=== PATIENT | female | born 1945 | race Caucasian/White ===

== ENCOUNTER 2021-08-09 01:48 | Inpatient (IN) | payer MEDICARE, SELFPAY ==
[~2021-08-09] VITALS: Ht 157.5 cm; Wt 89.8 kg
--- NOTE | 2021-08-09 01:55 | NUR ---
PT BROUGHT TO BED 1 VIA PEÑA REDDY
[2021-08-09 01:56] VITALS: BP 148/71
--- NOTE | 2021-08-09 01:56 | NUR ---
patient biba from [facility] c/o left knee and left thigh pain s/p fall. Lac on the left hand. denies loc, gcs 15, aaox4. covid +. patient was just grabbing something and rolled off the bed. pmh: stroke 2017, dm2 meds: plavix nka
--- NOTE | 2021-08-09 02:50 | NUR ---
patient to CT via [facility]
[2021-08-09] MEDS ORDERED: HYDROcodone/APAP 10/325 MG 1 TAB TAB PO ONE (03:25)
[2021-08-09] MEDS ORDERED: ONDANSETRON 4 MG/2 ML VIAL IVP ONE (03:35)
[2021-08-09] MEDS ORDERED: MORPHINE SULFATE 4 MG/ML SYR IVP ONE (03:35)
[2021-08-09 03:54] LABS: BASOPHILS # (AUTO) 0.1 K/uL (0.00-0.22); BASOPHILS % (AUTO) 0.9 % (0.0-2.0); EOSINOPHILS # (AUTO) 0.1 K/uL (0-0.4); EOSINOPHILS % (AUTO) 0.9 % (0.0-4.0); HEMATOCRIT 37.3 % (36-48); HEMOGLOBIN 12.5 g/dL (12.0-16.0); LYMPHOCYTES # (AUTO) 1.6 K/uL (2.5-16.5); LYMPHOCYTES % (AUTO) 14.2 % (20.5-51.1); MEAN CORPUSCULAR HEMOGLOBIN 31 pg (27-31); MEAN CORPUSCULAR HGB CONC 33 g/dL (33-37); MONOCYTES # (AUTO) 0.7 K/uL (0.8-1.0); MONOCYTES % (AUTO) 6.7 % (1.7-9.3); NEUTROPHILS # (AUTO) 8.6 K/uL (1.8-7.7); NEUTROPHILS % (AUTO) 77.3 % (42.2-75.2); PLATELET COUNT (AUTO) 339 K/uL (140-450); RED BLOOD CELL COUNT(AUTO) 3.97 MIL/uL (4.20-5.40); RED CELL DISTRIBUTION WIDTH 14.8 % (11.6-13.7); WHITE BLOOD COUNT (AUTO) 11.1 K/uL (4.8-10.8)
[2021-08-09] MEDS ORDERED: MORPHINE SULFATE 4 MG/ML SYR IM ONE (04:25)
--- NOTE | 2021-08-09 05:52 | NUR ---
ADRIANNE Conte at bedside performing central line on patient.
[2021-08-09] MEDS ORDERED: ACET-10509 PO (07:06)
[2021-08-09] MEDS ORDERED: VITA-16 PO (07:06)
[2021-08-09] MEDS ORDERED: BALS30OI TP (07:06)
[2021-08-09] MEDS ORDERED: PRON INH (07:06)
[2021-08-09] MEDS ORDERED: MULT-2112 PO (07:06)
[2021-08-09] MEDS ORDERED: CARV3.122 PO (07:06)
[2021-08-09] MEDS ORDERED: ATOR20TA PO (07:06)
[2021-08-09] MEDS ORDERED: LISI5TAB18 PO (07:06)
[2021-08-09] MEDS ORDERED: ACET-9525 PO (07:06)
[2021-08-09] MEDS ORDERED: CLOP75TA26 PO (07:06)
--- NOTE | 2021-08-09 07:19 | NUR ---
Pt report given to Jayesh HART. Transfer of care at this time.
--- NOTE | 2021-08-09 08:06 | NUR ---
Patient noted to have existing wounds upon arrival to ER. Photos taken of wound and placed in chart. Wound covered with dressing. Physician informed.
[2021-08-09] MEDS ORDERED: SODIUM PHOS / POTASSIUM PHOS 1 PKT PDR PO PRN (08:15)
[2021-08-09] MEDS ORDERED: MAG SULF 2000 MG/WATER PREMIX 50 ML IV PRN (08:15)
[2021-08-09] MEDS ORDERED: DOCUSATE SODIUM 100 MG GELCAP PO PRN (08:15)
[2021-08-09] MEDS ORDERED: ACETAMINOPHEN 325 MG TAB PO PRN (08:15)
[2021-08-09] MEDS ORDERED: DEXT 5% /NACL 0.9% 1,000 ML IV SCH (08:15)
[2021-08-09] MEDS ORDERED: ONDANSETRON 4 MG/2 ML VIAL IM/IVP PRN (08:15)
--- NOTE | 2021-08-09 08:30 | NUR ---
CENTRAL LINE PLACED BY DR. SADLER
--- NOTE | 2021-08-09 09:02 | NUR ---
PT TAKEN TO CT.
[2021-08-09] MEDS: lisinopriL 5 MG TAB PO SCH (09:30)
[2021-08-09] MEDS: carvediloL 3.125 MG TAB PO SCH ×2 (09:30→22:46)
[2021-08-09] MEDS: VITAMIN D 400 IU TAB PO SCH (09:30)
[2021-08-09] MEDS: PANTOPRAZOLE 40 MG INJ VIAL IVP SCH (09:30)
[2021-08-09] MEDS: MULTIVITAMIN/MINERALS 1 TAB PO SCH (10:30)
[2021-08-09 10:32] LABS: MAGNESIUM 2.1 mg/dL (1.8-2.4)
[2021-08-09 10:33] LABS: ALBUMIN 2.5 g/dL (3.4-5.0); ANION GAP 15.3 (8-16); ASPARTATE AMINOTRANSFERASE 31 U/L (15-37); CARBON DIOXIDE 22.5 mmol/L (21-32); CHLORIDE 108 mmol/L (98-107); CREATININE 0.8 mg/dL (0.6-1.3); GLUCOSE 172 mg/dL (74-106); POTASSIUM 3.8 mmol/L (3.5-5.1); SODIUM SERUM 142 mmol/L (136-145); TOTAL BILIRUBIN 0.6 mg/dL (0.0-1.0); UREA NITROGEN, BLOOD 20 mg/dL (7-18)
--- NOTE | 2021-08-09 10:39 | NUR ---
PT WOUND ON LEFT ARM WAS IRRIGATED WITH NORMAL SALINE. THE WOUND WAS THEN BANDAGED WITH NOPADHERENT DRESSING AND GAUZE ROLL.
[2021-08-09] MEDS: MORPHINE SULFATE 2 MG/ML SYR IVP PRN ×2 (13:02→22:27)
[2021-08-09] MEDS: HYDROcodone/APAP 5/325 MG 1 TAB TAB PO PRN (14:10)
--- NOTE | 2021-08-09 15:49 | NUR ---
PATIENT HAS BEEN SCREENED AND CATEGORIZED LOW NUTRITION RISK. PATIENT WILL BE SEEN WITHIN 7 DAYS OF ADMISSION. 08/15/[address]
--- NOTE | 2021-08-09 19:57 | NUR ---
ENDORSED CARE TO ENVELOPE MACHINE OPERATOR NURSE DELFIN.
--- NOTE | 2021-08-09 20:00 | NUR ---
RESTING COMFORTABLY AT PRESENT RIGHT FEMORAL CENTRAL LINE INTACT
[2021-08-09] MEDS: ATORVASTATIN 20 MG TAB PO SCH (22:47)
--- NOTE | 2021-08-10 00:15 | NUR ---
TURNED AND REPOSITIONED, LINENS CHANGED
[2021-08-10] MEDS ORDERED: DEXTROSE 50% 50 ML SYR IVP PRN (00:25)
[2021-08-10] MEDS: NACL 0.45% 1,000 ML IV SCH ×2 (02:42→16:42)
--- NOTE | 2021-08-10 07:50 | NUR ---
Patient will be admitted to care of CHARO SHERMAN. Admited to [facility]. Will go to room 113. Belongings list completed. Report to charlie guerrero.
--- NOTE | 2021-08-10 07:51 | NUR ---
RECEIVED REPORT FROM ER NURSE NURSE FOR CONTINUITY OF CARE.
[2021-08-10 08:07] VITALS: BP 141/67
--- NOTE | 2021-08-10 08:07 | NUR ---
PT ARRIVED VIA GURNEY WITH ASSIST WITH 2 STAFF FROM ER. ALERT ORIENTED ON PAIN. IV SITE ON RIGHT FEMORAL CENTRAL LINE. ORIENTED TO ROOM, CALL LIGHT TOILET VISITING HOURS , BED. CALL LIGHT WITH IN EASY REACH.
[2021-08-10] MEDS: lisinopriL 5 MG TAB PO SCH (08:31)
[2021-08-10] MEDS: HYDROcodone/APAP 5/325 MG 1 TAB TAB PO PRN ×2 (08:31→14:39)
[2021-08-10] MEDS: carvediloL 3.125 MG TAB PO SCH ×2 (08:32→20:52)
[2021-08-10] MEDS: MULTIVITAMIN/MINERALS 1 TAB PO SCH (08:32)
[2021-08-10] MEDS: VITAMIN D 400 IU TAB PO SCH (08:32)
--- NOTE | 2021-08-10 08:48 | NUR ---
GIVEN ALL DUE ORAL MEDICATION AND PAIN MEDS TOLERATED WELL. ALL SAFETY MEASURE IN PLACE.
[2021-08-10] MEDS: PANTOPRAZOLE 40 MG INJ VIAL IVP SCH (09:00)
--- NOTE | 2021-08-10 09:30 | NUR ---
PT REASSESS FOR HER PAIN EFFECTIVE NO DISTRESS ASLEEP. CALL LIGHT WITH IN EASY REACH.
[2021-08-10 10:17] LABS: BASOPHILS % (AUTO) 0.5 % (0.0-2.0); EOSINOPHILS # (AUTO) 0.1 K/uL (0-0.4); EOSINOPHILS % (AUTO) 1.9 % (0.0-4.0); HEMATOCRIT 31.3 % (36-48); HEMOGLOBIN 10.4 g/dL (12.0-16.0); LYMPHOCYTES # (AUTO) 1.2 K/uL (2.5-16.5); LYMPHOCYTES % (AUTO) 15.5 % (20.5-51.1); MEAN CORPUSCULAR HEMOGLOBIN 32 pg (27-31); MEAN CORPUSCULAR HGB CONC 33 g/dL (33-37); MEAN CORPUSCULAR VOLUME 95.2 fL (80-94); MONOCYTES # (AUTO) 0.8 K/uL (0.8-1.0); MONOCYTES % (AUTO) 10.6 % (1.7-9.3); NEUTROPHILS # (AUTO) 5.5 K/uL (1.8-7.7); NEUTROPHILS % (AUTO) 71.5 % (42.2-75.2); PLATELET COUNT (AUTO) 272 K/uL (140-450); RED BLOOD CELL COUNT(AUTO) 3.29 MIL/uL (4.20-5.40); RED CELL DISTRIBUTION WIDTH 14.9 % (11.6-13.7); WHITE BLOOD COUNT (AUTO) 7.8 K/uL (4.8-10.8)
[2021-08-10 10:25] LABS: ANION GAP 11.7 (8-16); CHLORIDE 111 mmol/L (98-107); CREATININE 0.9 mg/dL (0.6-1.3); GLUCOSE 199 mg/dL (74-106); POTASSIUM 3.7 mmol/L (3.5-5.1); SODIUM SERUM 144 mmol/L (136-145); UREA NITROGEN, BLOOD 19 mg/dL (7-18)
[2021-08-10] MEDS: BLOOD GLUCOSE MONITORING 1 DEV DEV FS SCH ×4 (11:30→20:50)
[2021-08-10] MEDS: INSULIN LISPRO SLIDING SCALE 100 UNITS/ML VIAL SUBQ PRN (12:02)
--- NOTE | 2021-08-10 12:15 | NUR ---
PT WET AND NEED TO BE CHANGE BUT DOESNT WANT TO MOVE AND KEEP ASKING SINCE SHE CAME IN TO PUT CADE CATH. DR. MANCILLA DOING ROUND AND INFORM OF PT REQUEST AND HE AGREED ORDER NOTED AND CARRIED OUT.
--- NOTE | 2021-08-10 12:20 | NUR ---
BLOOD SUGAR CHECK GIVEN INSULIN PER COVERAGE. TOLERATED WELL.
--- NOTE | 2021-08-10 14:40 | NUR ---
PT COMPLAIN OF LEFT HIP PAIN MEDICATED ORDER.
[2021-08-10 16:00] VITALS: BP 153/66
--- NOTE | 2021-08-10 16:55 | NUR ---
BLOOD SUGAR CHECK BLOOD GLUCOSE OF 146 NO COVERAGE NEEDED. PT DOESN'T WANT TO REPOSTION ALWAYS ON HER SIDE. EXPLAIN THE RISK AND BENEFIT.
--- NOTE | 2021-08-10 18:29 | NUR ---
PT ON BED RESTING REFUSED TO BE REPOSITION. COMPLAIN OF HIP PAIN BUT SUBSIDED WITH PAIN MEDICATION. ISOLATION OBSERVE. ALL SAFETY MEASURE IN PLACE.
--- NOTE | 2021-08-10 19:25 | NUR ---
PT ENDORSE TO SPA DIRECTOR/FINANCE NURSE FOR CONTINUITY OF CARE.
--- NOTE | 2021-08-10 19:26 | NUR ---
RECEIVED BEDSIDE REPORT FROM DAY RN. PT IS AAOX3. RESPIRATIONS ARE EQUAL AND UNLABORED ON ROOM AIR SAT WELL 95%. SKIN IS WARM DRY HAS SKIN TEAR ON L FA DRESSING IS C/D/I. PT ON FALL PRECAUTIONS. ON DROPLET PRECAUTIONS FOR COVID +. DX L TROCHANTER FX. PULSES STRONG AND EQUAL. PT ABLE TO MOVE BOTH LEGS AND WIGGLE TOES. CAP REFILL <3 SEC. POC DISCUSSED WITH PT. CALL LIGHT IS WITHIN REACH. WILL CONTINUE TO MONITOR.
[2021-08-10 20:00] VITALS: BP 156/79
[2021-08-10] MEDS: ATORVASTATIN 20 MG TAB PO SCH (20:52)
--- NOTE | 2021-08-10 20:53 | NUR ---
VSS. ADMIN MOSES MEDICATIONS PER ORDERS. MED EDUCATION GIVEN. GAVE WARM BLANKET PER REQUEST. ALL NEEDS MET. WILL CONTINUE TO MONITOR.
--- NOTE | 2021-08-10 22:10 | NUR ---
ROUNDS MADE. PT OBSERVED LAYING ON SIDE. APPEARS TO BE ASLEEP. CHEST RISE AND FALL NOTED. CALL LIGHT IS WITHIN REACH. WILL CONTINUE TO MONITOR.
[2021-08-11] MEDS: MORPHINE SULFATE 2 MG/ML SYR IVP PRN ×2 (00:06→05:22)
--- NOTE | 2021-08-11 00:06 | NUR ---
L HIP PAIN 02/04 ADMIN PRN MORPHINE. PT TOLERATED WELL. EDUCATED PATIENT ON NEED TO REPOSITION TO PREVENT PRESSURE ULCERS PT REFUSING AT THIS TIME. WILL ATTEMPT AGAIN LATER.
--- NOTE | 2021-08-11 02:21 | NUR ---
ROUNDS MADE. PT OBSERVED LAYING IN BED APPEARS TO BE ASLEEP. CHESTS RISE AND FALL NOTED. WILL CONTINUE TO MONITOR.
[2021-08-11 04:00] VITALS: BP 151/72
--- NOTE | 2021-08-11 04:00 | NUR ---
VITAL SIGNS ARE WITHIN NORMAL LIMITS. ALL SAFETY MEASURES ARE IN PLACE. WILL CONTINUE TO MONITOR.
[2021-08-11] MEDS: BLOOD GLUCOSE MONITORING 1 DEV DEV FS SCH ×4 (06:31→21:41)
[2021-08-11] MEDS: INSULIN LISPRO SLIDING SCALE 100 UNITS/ML VIAL SUBQ PRN ×3 (06:31→21:36)
--- NOTE | 2021-08-11 06:31 | NUR ---
BS 164 ADMIN HUMALOG PER SLIDING SCALE. SNACK AT BEDSIDE. ALL NEEDS MET. CALL LIGHT IS WITHIN REACH. WILL CONTINUE TO MONITOR.
--- NOTE | 2021-08-11 07:09 | NUR ---
GAVE BEDSIDE REPORT TO DAY RN. PT ENDORSED IN STABLE CONDITION.
--- NOTE | 2021-08-11 07:10 | NUR ---
RECEIVED ENDORSEMENT FROM MULTIFOCAL LENS INSPECTOR FOR CONTINUITY OF CARE. PT ASLEEP NO DISTRESS NOTED.
[2021-08-11 07:27] LABS: BASOPHILS # (AUTO) 0.1 K/uL (0.00-0.22); EOSINOPHILS # (AUTO) 0.2 K/uL (0-0.4); EOSINOPHILS % (AUTO) 1.8 % (0.0-4.0); HEMATOCRIT 30.7 % (36-48); HEMOGLOBIN 10.2 g/dL (12.0-16.0); LYMPHOCYTES # (AUTO) 1.9 K/uL (2.5-16.5); LYMPHOCYTES % (AUTO) 22.7 % (20.5-51.1); MEAN CORPUSCULAR HEMOGLOBIN 31 pg (27-31); MEAN CORPUSCULAR HGB CONC 33 g/dL (33-37); MEAN CORPUSCULAR VOLUME 94.2 fL (80-94); MONOCYTES # (AUTO) 0.8 K/uL (0.8-1.0); NEUTROPHILS # (AUTO) 5.6 K/uL (1.8-7.7); NEUTROPHILS % (AUTO) 65.5 % (42.2-75.2); PLATELET COUNT (AUTO) 286 K/uL (140-450); RED BLOOD CELL COUNT(AUTO) 3.26 MIL/uL (4.20-5.40); RED CELL DISTRIBUTION WIDTH 14.6 % (11.6-13.7); WHITE BLOOD COUNT (AUTO) 8.5 K/uL (4.8-10.8)
[2021-08-11 07:56] LABS: ANION GAP 12.4 (8-16); CARBON DIOXIDE 25.1 mmol/L (21-32); CHLORIDE 108 mmol/L (98-107); CREATININE 0.8 mg/dL (0.6-1.3); GLUCOSE 167 mg/dL (74-106); POTASSIUM 3.5 mmol/L (3.5-5.1); SODIUM SERUM 142 mmol/L (136-145); UREA NITROGEN, BLOOD 12 mg/dL (7-18)
[2021-08-11 08:00] VITALS: BP 135/72
[2021-08-11] MEDS ORDERED: lisinopriL 5 MG TAB PO SCH (09:00)
[2021-08-11] MEDS: VITAMIN D 400 IU TAB PO SCH (09:11)
[2021-08-11] MEDS: carvediloL 3.125 MG TAB PO SCH ×2 (09:11→21:15)
[2021-08-11] MEDS: MULTIVITAMIN/MINERALS 1 TAB PO SCH (09:11)
--- NOTE | 2021-08-11 09:26 | NUR ---
GIVEN ALL MEDICATION AND ASSISTED FOR HER BREAKFAST. PT ON HER RIGHT SIDE ENCOURAGED TO CHANGE POSITION AND EXPLAIN THE RISK AND BENEFIT BUT SKIN DOESN'T WANT TO CHANGE POSITION.
--- NOTE | 2021-08-11 09:27 | NUR ---
RN GAVE IV PANTOPRAZOLE MEDICATION.
[2021-08-11] MEDS: NACL 0.45% 1,000 ML IV SCH (09:40)
--- NOTE | 2021-08-11 09:54 | NUR ---
IV HYDRATION STILL RUNNING.
[2021-08-11] MEDS: PANTOPRAZOLE 40 MG INJ VIAL IVP SCH (09:55)
[2021-08-11] MEDS: HYDROcodone/APAP 5/325 MG 1 TAB TAB PO PRN ×2 (09:59→18:53)
--- NOTE | 2021-08-11 10:09 | NUR ---
PT COMPLAINING OF NON PRODUCTIVE COUGH INFORM DR. LANGE COVERING FOR DR. DR. MANCILLA. WAITING FOR RESPONSE.
--- NOTE | 2021-08-11 10:19 | NUR ---
DR. EDMOND ORDERED GUFENESIN NOTED AND CARRIED OUT.
[2021-08-11] MEDS: guaiFENesin/CODEINE 100/10MG 5 ML UDC PO PRN ×2 (10:30→17:38)
--- NOTE | 2021-08-11 11:30 | NUR ---
DR. SAUER INSPECTOR CLIP ON SUNGLASSES AT BED SIDE.
--- NOTE | 2021-08-11 11:42 | NUR ---
LEFT MESSAGE TO DOCTOR COHEN FOR CONSULT.
--- NOTE | 2021-08-11 13:10 | NUR ---
PT ON BED RESTING CONTINUE TO BE NPO ON STABLE CONDITION. DROPLET ISOLATION OBSERVE.
--- NOTE | 2021-08-11 15:09 | NUR ---
INFORM PT SHE GOING TO BE TRANSFER TO [facility] FOR HER SURGERY. PT WITH UNDERSTANDING.
--- NOTE | 2021-08-11 16:01 | NUR ---
DC PLANNING: THE PATIENT ADMITTED FROM [facility] S/P FALL WITH C/O PAIN TO THE LEFT HIP. LEFT FEMUR XRAY CONFIRMS INTERTROCHANTERIC FRACTURE OF THE LEFT FEMUR. ORTHO CONSULT ORDERED WITH DR SMITH, HE HAS ASKED THAT THE PATIENT TRANSFER TO [facility]. TRANSFER AND AUTHORIZATION ARRANGEMENTS TO BE DONE BY THE NUCLEAR WORKER TECHNICIAN CHAGO ESCALANTE WILL FOLLOW FOR NEEDS.
--- NOTE | 2021-08-11 16:09 | NUR ---
Dr Diaz Clark called and stated that surgery can be done in [facility]. Contacted Dawood at [place] to see if able to do surgery at [place], L[facility] is able to accommodate Patient and surgery will be done at [facility]. Called [place] insurance no need for auth. and spoke to Teresa Blount to send [place]. Called [facility] transport and arranged transportation for pick up worker at 1630. [facility] able [facility]. will continue to monitor
--- NOTE | 2021-08-11 16:44 | NUR ---
Dr Perales called and looked at the x ray image and stated hip it is not dislocated and can wait on surgery until next week. Called transportation and cancelled it. called [facility] and cancelled bed.
--- NOTE | 2021-08-11 17:22 | NUR ---
DR. COHEN SEEN AND EXAMINED ORDER TO DISCONTINUE NPO.
--- NOTE | 2021-08-11 18:08 | NUR ---
Patient will be going to [facility] tomorrow at 6 am for surgery. Spoke to CLIFF Garcias at CT, Patient will go to room 124B. Dr. Redding aware that surgery tomorrow at CT.
--- NOTE | 2021-08-11 18:12 | NUR ---
PER BORIS FREIGHT DISPATCHER - PT IS NPO POST [place] - PUT AN ORDER - INFORM TANNER BRENNAN.
--- NOTE | 2021-08-11 19:30 | NUR ---
PT ON STABLE CONDITION ENDORSE TO SYSTEMS TECHNICIAN NURSE FOR CONTINUITY OF CARE.
--- NOTE | 2021-08-11 19:35 | NUR ---
RECEIVED BEDSIDE REPORT FROM DAY RN FOR CONTINUITY OF CARE. PT IS AAOX3. RESPIRATIONS ARE EQUAL AND UNLABORED ON RA SAT WELL 95%. SKIN TEAR ON L FA DRESSING DRY AND INTACT.ON DROPLET PRECAUTIONS FOR COVID +. DX L TROCHANTER FX. PULSES STRONG AND EQUAL. PT ABLE TO MOVE BOTH LEGS AND WIGGLE TOES. ALL PRECAUTIONS IN PLACE. CALL LIGHT IS WITHIN REACH. WILL CONTINUE TO MONITOR.
[2021-08-11 20:00] VITALS: BP 131/63
[2021-08-11] MEDS: ATORVASTATIN 20 MG TAB PO SCH (21:16)
--- NOTE | 2021-08-11 21:30 | NUR ---
DUE MEDICATIONS GIVEN. PT TOLERATED WELL. NO DISTRESS NOTED. WILL CONTINUE TO MONITOR.
--- NOTE | 2021-08-11 21:50 | NUR ---
BLOOD GLUCOSE WAS 220. INSULIN COVERAGE GIVEN. PT TOLERATED WELL. WILL CONTINUE TO MONITOR.
--- NOTE | 2021-08-12 | NUR ---
PT ASLEEP. VISIBLE CHEST RISE AND FALL NOTED. ALL PRECAUTIONS IN PLACE. WILL CONTINUE TO MONITOR.
[2021-08-12] MEDS: NACL 0.45% 1,000 ML IV SCH (02:20)
--- NOTE | 2021-08-12 02:35 | NUR ---
PT ASLEEP. VISIBLE CHEST RISE AND FALL NOTED.NO S/SX OF DISTRESS.CALL LIGHT WITHIN REACH. ALL PRECAUTIONS IN PLACE. WILL CONTINUE TO MONITOR.
[2021-08-12 04:00] VITALS: BP 125/66
--- NOTE | 2021-08-12 06:00 | NUR ---
PT WAS PICKED UP BY [facility] TRANSPORT PERSONNEL CARLOS GOING TO [place] FOR SURGERY OF LEFT TROCHANTER FX. VSS.PT IN STABLE CONDITION.
== END 2021-08-12 06:00 | disposition short-term general hospital (02) | DRG 535 ==
LOC: MED 01:48 → MMU 08:18 → MTU 08-10 05:59
PROVIDERS: ADMIT Hospitalist; ATTEND Hospitalist
DX: S72.142A Displaced intertrochanteric fracture of left femur, initial encounter for closed fracture (principal); U07.1 COVID-19; E43 Unspecified severe protein-calorie malnutrition; E78.5 Hyperlipidemia, unspecified; I10 Essential (primary) hypertension; K42.9 Umbilical hernia without obstruction or gangrene; E66.9 Obesity, unspecified; K57.90 Diverticulosis of intestine, part unspecified, without perforation or abscess without bleeding; J32.3 Chronic sphenoidal sinusitis; J01.30 Acute sphenoidal sinusitis, unspecified; E11.65 Type 2 diabetes mellitus with hyperglycemia; Z86.73 Personal history of transient ischemic attack (TIA), and cerebral infarction without residual deficits; Z79.1 Long term (current) use of non-steroidal anti-inflammatories (NSAID); Z79.891 Long term (current) use of opiate analgesic; Z68.36 Body mass index [BMI] 36.0-36.9, adult
CPT/HCPCS: 36415; 70450; 71045; 72192; 80048; 80053; 82948; 83036; 83735; 84100; 85025; 87081; 93005; 96372; 96374; 99285; C9113; J1644; J2270; J2405; Q0092

== ENCOUNTER 2021-08-23 14:36 | Inpatient (IN) | payer MEDICARE, SELFPAY ==
[~2021-08-23] VITALS: Ht 157.5 cm; Wt 83.5 kg
[~2021-08-23 14:36] MED LIST: ACET-10509 PO; ACET-9525 PO; ATOR20TA PO; BALS30OI TP; CARV3.122 PO; CLOP75TA26 PO; LISI5TAB18 PO; MULT-2112 PO; PRON INH; VITA-16 PO
[2021-08-23 14:40] VITALS: BP 127/72
--- NOTE | 2021-08-23 14:40 | NUR ---
BIBA to bed 08
--- NOTE | 2021-08-23 14:50 | NUR ---
EVERTD made aware of EKG results.
--- NOTE | 2021-08-23 15:30 | NUR ---
MARIA DEL CARMEN SWAB AND URINE COLLECTED AND WALKED TO LAB.
--- NOTE | 2021-08-23 15:45 | NUR ---
RT CALLED PER DR PRATT, TO PUT PT ON NON DEBREATHER INSTEAD OF BY-POP.
--- NOTE | 2021-08-23 15:53 | NUR ---
DR PRATT AT BEDSIDE FOR ULTRASOUND IV PLACEMENT.
--- NOTE | 2021-08-23 15:53 | NUR ---
75 Y/O F BIBA FOR ALOC,SHIVERING AND DESATURATION. PER HARJINDER HART SHE WAS STATING 89 ON [address] NC AT HER PLACE, PER EMS PT DESATURATED 50% AND PLACED ON CPAP 90% ON SCENE.RAPID RR AND RAPID HR AT 150'S. PT BASELINE A&O 3. PMH: HTN, DM, FEMUR FX, HLD NKA
--- NOTE | 2021-08-23 15:54 | NUR ---
RT AT BEDSIDE.
[2021-08-23] MEDS ORDERED: INTUBATION KIT MC ONE (15:55)
[2021-08-23] MEDS ORDERED: fentaNYL citrate 1 MG in NACL 0.9% 80 ML IV PRN (16:25)
[2021-08-23] MEDS ORDERED: MIDAZOLAM MDV 50 MG in NACL 0.9% 40 ML IV PRN (16:25)
[2021-08-23] MEDS ORDERED: MIDAZOLAM MDV 100 MG in NACL 0.9% 80 ML IV PRN (16:29)
[2021-08-23] MEDS ORDERED: PIPERACILLIN/TAZOBACTAM 3.375 GM in DEXTROSE 5% 50 ML IV ONE (16:30)
[2021-08-23] MEDS ORDERED: VANCOMYCIN 1,000 MG in DEXTROSE 5% 250 ML IV ONE (16:30)
[2021-08-23] MEDS ORDERED: fentaNYL citrate 2.5 MG in NACL 0.9% 200 ML IV PRN (16:35)
--- NOTE | 2021-08-23 16:50 | NUR ---
FENTANYL AND VERSED STARTED AT THIS TIME. SEE IV SPREADHSHEET
[2021-08-23 16:51] LABS: BASOPHILS % (AUTO) 0.2 % (0.0-2.0); EOSINOPHILS % (AUTO) 0.1 % (0.0-4.0); HEMATOCRIT 33.5 % (36-48); HEMOGLOBIN 10.5 g/dL (12.0-16.0); LYMPHOCYTES # (AUTO) 0.4 K/uL (2.5-16.5); LYMPHOCYTES % (AUTO) 4.2 % (20.5-51.1); MEAN CORPUSCULAR HEMOGLOBIN 30 pg (27-31); MEAN CORPUSCULAR HGB CONC 32 g/dL (33-37); MEAN CORPUSCULAR VOLUME 95.6 fL (80-94); MONOCYTES # (AUTO) 0.1 K/uL (0.8-1.0); MONOCYTES % (AUTO) 0.6 % (1.7-9.3); NEUTROPHILS # (AUTO) 8.6 K/uL (1.8-7.7); NEUTROPHILS % (AUTO) 94.9 % (42.2-75.2); PLATELET COUNT (AUTO) 197 K/uL (140-450); RED CELL DISTRIBUTION WIDTH 15.2 % (11.6-13.7)
[2021-08-23 17:34] LABS: ALBUMIN 2.2 g/dL (3.4-5.0); ANION GAP 20.7 (8-16); ASPARTATE AMINOTRANSFERASE 38 U/L (15-37); CARBON DIOXIDE 19.8 mmol/L (21-32); CHLORIDE 103 mmol/L (98-107); CREATININE 1.3 mg/dL (0.6-1.3); GLUCOSE 235 mg/dL (74-106); POTASSIUM 3.5 mmol/L (3.5-5.1); SODIUM SERUM 140 mmol/L (136-145); TOTAL BILIRUBIN 0.8 mg/dL (0.0-1.0); UREA NITROGEN, BLOOD 13 mg/dL (7-18)
[2021-08-23] MEDS ORDERED: NACL 0.9% 1,000 ML IV ONE (17:35)
[2021-08-23 17:51] VITALS: BP 164/89
--- NOTE | 2021-08-23 17:55 | NUR ---
REVIEWED CHEST X RAY RETRACTED ENDOTRACHEAL TUBE 3cm TO 22cm
[2021-08-23] MEDS ORDERED: VANCOMYCIN 1,000 MG VIAL ONE (18:28)
--- NOTE | 2021-08-23 18:36 | NUR ---
BIBA from [facility] for ALOC, shivering and desaturation. Per EMS, patient desaturated to 50%, placed on CPAP SpO2 90% on scene. RR 50's rapid/shallow respirations. EMS states pt + COVID two weeks ago, (-) 5 days ago. PT baseline A&Ox4, presents A&Ox1/name; GCS 14 able to follow commands and answer with 1-2 worded questions. RT at bedside. Breath sounds clear at this time. Skin dry and intact. pt placed PMH: HLD, L femur fx, DM, HTN Meds: atorvastatin, clopidogrel, carvedilol, lisinopril, sliding scale lispro, norco NKDA
[2021-08-23 18:47] LABS: PROTHROMBIN TIME 12.5 secs (10.8-13.4)
[2021-08-23] MEDS ORDERED: POTASSIUM CHLORIDE 10 MEQ TABER PO PRN (18:55)
[2021-08-23] MEDS ORDERED: ONDANSETRON 4 MG/2 ML VIAL IM/IVP PRN (18:55)
[2021-08-23] MEDS ORDERED: HYDROcodone/APAP 5/325 MG 1 TAB TAB PO PRN (18:55)
[2021-08-23] MEDS ORDERED: DEXTROSE 50% 50 ML SYR IVP PRN (18:55)
[2021-08-23] MEDS ORDERED: SODIUM PHOS / POTASSIUM PHOS 1 PKT PDR PO PRN (18:55)
[2021-08-23] MEDS ORDERED: MAG SULF 2000 MG/WATER PREMIX 50 ML IV PRN (18:55)
[2021-08-23] MEDS ORDERED: DOCUSATE SODIUM 100 MG GELCAP PO PRN (18:55)
--- NOTE | 2021-08-23 19:26 | NUR ---
Pt report given to TANNER LENZ. Transfer of care at this time.
[2021-08-23 19:35] VITALS: BP 109/53
--- NOTE | 2021-08-23 20:10 | NUR ---
LACTIC ACID DRAWN
[2021-08-23] MEDS: ATORVASTATIN 20 MG TAB PO SCH (21:00)
[2021-08-23] MEDS: carvediloL 3.125 MG TAB PO SCH (21:00)
--- NOTE | 2021-08-23 21:20 | NUR ---
TO CT VIA GURNEY, ATTACHED TO CM, ACCOMPANIED BR RN, RT, AIRPORT SHUTTLE DRIVER
[2021-08-23 21:54] LABS: MAGNESIUM 1.9 mg/dL (1.8-2.4); PHOSPHORUS 2.6 mg/dL (2.5-4.9); THYROID STIMULATING HORMONE 2.5 uIU/mL (0.34-3.74)
--- NOTE | 2021-08-23 21:57 | NUR ---
PT RETURN FROM CT
--- NOTE | 2021-08-23 22:33 | NUR ---
REPORTED TO ER @ 5615 TO ASSIST WITH TRANSPORTING PT TO CT. NO ISSUES OCCURRED PT BACK IN ER.
--- NOTE | 2021-08-23 23:00 | NUR ---
BP LOW, FLUID BOLUS BEGUN
[2021-08-23] MEDS: BLOOD GLUCOSE MONITORING 1 DEV DEV FS SCH (23:07)
[2021-08-23] MEDS: NACL 0.9% 1,000 ML IV SCH (23:07)
--- NOTE | 2021-08-24 | NUR ---
APPEARS TO BE RESTING COMFORTABLY. REPOSITIONED SLIGHTLY. RT HAS BEEN AT BEDIDE
--- NOTE | 2021-08-24 01:00 | NUR ---
repositioned. vs have been stable
[2021-08-24 03:34] VITALS: BP 91/46
--- NOTE | 2021-08-24 05:42 | NUR ---
fIo2 decreased to 70%
--- NOTE | 2021-08-24 06:08 | NUR ---
Note austin in EDM - 08/24/21 at 0610 by MARLIN REPOSITIONED. HAS BEEN INCONTINENT OF VERY LARGE AMOUNT LIQUID BROWN STOOL. CLEANSED, LINENS AND GOWN CHANGED. MADE COMFORTABLE
--- NOTE | 2021-08-24 06:10 | NUR ---
REPOSITIONED. HAS BEEN INCONTINENT OF VERY LARGE AMOUNT LIQUID BROWN STOOL. CLEANSED, LINENS AND GOWN CHANGED. MADE COMFORTABLE
[2021-08-24 07:03] VITALS: BP 91/46
[2021-08-24] MEDS: NACL 0.9% 1,000 ML IV SCH ×2 (07:27→15:52)
[2021-08-24 07:43] LABS: BASOPHILS # (AUTO) 0.1 K/uL (0.00-0.22); BASOPHILS % (AUTO) 0.5 % (0.0-2.0); HEMOGLOBIN 8.4 g/dL (12.0-16.0); LYMPHOCYTES % (AUTO) 5.1 % (20.5-51.1); MEAN CORPUSCULAR HEMOGLOBIN 31 pg (27-31); MEAN CORPUSCULAR HGB CONC 32 g/dL (33-37); MEAN CORPUSCULAR VOLUME 95.7 fL (80-94); MONOCYTES # (AUTO) 1.4 K/uL (0.8-1.0); MONOCYTES % (AUTO) 6.7 % (1.7-9.3); NEUTROPHILS # (AUTO) 17.9 K/uL (1.8-7.7); NEUTROPHILS % (AUTO) 87.7 % (42.2-75.2); PLATELET COUNT (AUTO) 132 K/uL (140-450); RED BLOOD CELL COUNT(AUTO) 2.72 MIL/uL (4.20-5.40); RED CELL DISTRIBUTION WIDTH 15.3 % (11.6-13.7); WHITE BLOOD COUNT (AUTO) 20.5 K/uL (4.8-10.8)
[2021-08-24 08:33] LABS: ANION GAP 14.2 (8-16); CARBON DIOXIDE 22.2 mmol/L (21-32); CHLORIDE 107 mmol/L (98-107); CREATININE 1.7 mg/dL (0.6-1.3); GLUCOSE 205 mg/dL (74-106); POTASSIUM 3.4 mmol/L (3.5-5.1); SODIUM SERUM 140 mmol/L (136-145); UREA NITROGEN, BLOOD 19 mg/dL (7-18)
[2021-08-24] MEDS ORDERED: lisinopriL 5 MG TAB PO SCH (09:00)
[2021-08-24 10:56] VITALS: BP 91/46
--- NOTE | 2021-08-24 11:01 | NUR ---
JULIA PER MD MANCILLA TO CHANGE MEDS FROM PO ROUTE TO GT ROUTE. JULIA PER JONELLE BYERS TO CRUSH MEDS AT THIS TIME.
[2021-08-24] MEDS: BLOOD GLUCOSE MONITORING 1 DEV DEV FS SCH ×3 (11:30→23:04)
[2021-08-24] MEDS: PANTOPRAZOLE 40 MG INJ VIAL IVP SCH (11:45)
[2021-08-24] MEDS: carvediloL 3.125 MG TAB PO SCH (11:46)
[2021-08-24] MEDS: CLOPIDOGREL 75 MG TAB PO SCH (11:46)
[2021-08-24] MEDS: MULTIVITAMIN/MINERALS 1 TAB PO SCH (11:47)
[2021-08-24 14:46] VITALS: BP 89/47
--- NOTE | 2021-08-24 16:09 | NUR ---
pt rass at this time is -2 with versed and fentanyl
--- NOTE | 2021-08-24 16:48 | NUR ---
PATIENT HAS BEEN SCREENED AND CATEGORIZED HIGH NUTRITION RISK. PATIENT WILL BE SEEN WITHIN 1-2 DAYS OF ADMISSION. / ANANTH OBRIEN RD
--- NOTE | 2021-08-24 16:52 | NUR ---
md casanova at bedside assessing at this time
[2021-08-24] MEDS: INSULIN LISPRO SLIDING SCALE 100 UNITS/ML VIAL SUBQ PRN (19:13)
--- NOTE | 2021-08-24 19:34 | NUR ---
Pt report given to marc guerrero. Transfer of care at this time.
--- NOTE | 2021-08-24 21:39 | NUR ---
PT STARTING TO WAKE UPO FROM SEDATION. MIDAZOLAM ADJUSTED TO 3MG/HR AND FENTANYL ADJUSTED TO 0.999 MCG/KG/HR.
[2021-08-24] MEDS ORDERED: PIPERACILLIN/TAZOBACTAM 3.375 GM VIAL IV ONE (21:40)
--- NOTE | 2021-08-24 22:00 | NUR ---
WOUND PHOTOS TAKEN
[2021-08-24 22:07] VITALS: BP 90/52
--- NOTE | 2021-08-24 22:10 | NUR ---
RT AT BEDSIDE. ADJUSTED PT FiO2 TO 70%. PT TOLERATED WELL.
[2021-08-24] MEDS: PIPERACILLIN/TAZOBACTAM 3.375 GM in DEXTROSE 5% 50 ML IV SCH (22:14)
--- NOTE | 2021-08-24 23:00 | NUR ---
Received report from FABIANO Evans RN.
--- NOTE | 2021-08-24 23:10 | NUR ---
Patient will be admitted to care of DR MANCILLA. Admited to ICU. Will go to room 6. Belongings list completed. Report to AJITH.
--- NOTE | 2021-08-24 23:25 | NUR ---
Patient came in to ICU via [place], very dirty, Initial Physical Exam done, ongoing in LEJ = Versed @3mg & Fentanyl @1.05mcg/kg/min, Rt. Groin TLC very Dirty ( Bile looking stuff on caps for IV's SL caps) & was NOT covered with Opsite, just Open to air. Clean with Chlorhexidine wipes, Change gown, linen & Chaulks. Made Clean, Dry & comfortable. ETT to Vent= AC/VC settings Rate=16, TV= 400, FiO2=60%, PEEP=5, VS monitored [id number] & was stable. Trammell to [place].with Concentrated tristen colored urine.
[2021-08-24 23:30] VITALS: BP 92/47
[2021-08-25] VITALS (28 sets, daily range): BP systolic 69–138; BP diastolic 37–68
[2021-08-25] MEDS: NACL 0.9% 1,000 ML IV SCH ×3 (00:02→20:55)
[2021-08-25] MEDS: ATORVASTATIN 20 MG TAB PO SCH ×2 (00:06→20:16)
[2021-08-25] MEDS: carvediloL 3.125 MG TAB PO SCH (00:07)
[2021-08-25] MEDS ORDERED: NOREPINEPHRINE 4 MG/4 ML VIAL IV ONE (03:49)
[2021-08-25] MEDS: NOREPINEPHRINE 8 MG in DEXTROSE 5% 250 ML IV PRN (04:18)
--- NOTE | 2021-08-25 04:35 | NUR ---
DECREASED FIO2 TO 40% AT THIS TIME. PT CURRENTLY SATING 100%.
[2021-08-25] MEDS: PIPERACILLIN/TAZOBACTAM 3.375 GM in DEXTROSE 5% 50 ML IV SCH ×3 (05:00→20:16)
[2021-08-25] MEDS ORDERED: VANCOMYCIN PER PHARMACY MC PRN (05:10)
[2021-08-25 05:25] LABS: BASOPHILS # (AUTO) 0.1 K/uL (0.00-0.22); BASOPHILS % (AUTO) 0.4 % (0.0-2.0); EOSINOPHILS # (AUTO) 0.2 K/uL (0-0.4); HEMATOCRIT 23.3 % (36-48); HEMOGLOBIN 7.5 g/dL (12.0-16.0); LYMPHOCYTES # (AUTO) 0.9 K/uL (2.5-16.5); LYMPHOCYTES % (AUTO) 5.5 % (20.5-51.1); MEAN CORPUSCULAR HEMOGLOBIN 31 pg (27-31); MEAN CORPUSCULAR HGB CONC 32 g/dL (33-37); MEAN CORPUSCULAR VOLUME 94.9 fL (80-94); MONOCYTES # (AUTO) 0.4 K/uL (0.8-1.0); MONOCYTES % (AUTO) 2.7 % (1.7-9.3); NEUTROPHILS # (AUTO) 15.2 K/uL (1.8-7.7); NEUTROPHILS % (AUTO) 90.4 % (42.2-75.2); PLATELET COUNT (AUTO) 121 K/uL (140-450); RED BLOOD CELL COUNT(AUTO) 2.45 MIL/uL (4.20-5.40); RED CELL DISTRIBUTION WIDTH 15.4 % (11.6-13.7); WHITE BLOOD COUNT (AUTO) 16.8 K/uL (4.8-10.8)
[2021-08-25 05:26] LABS: ANION GAP 13.9 (8-16); CARBON DIOXIDE 22.1 mmol/L (21-32); CHLORIDE 110 mmol/L (98-107); CREATININE 1.7 mg/dL (0.6-1.3); GLUCOSE 139 mg/dL (74-106); SODIUM SERUM 143 mmol/L (136-145); UREA NITROGEN, BLOOD 27 mg/dL (7-18)
[2021-08-25] MEDS ORDERED: VANCOMYCIN 1GM/DEXT 5% PREMIX 200 ML IV SCH (05:30)
[2021-08-25] MEDS ORDERED: VANCOMYCIN 1,000 MG VIAL ONE (06:43)
[2021-08-25] MEDS ORDERED: PIPERACILLIN/TAZOBACTAM 3.375 GM VIAL IV ONE (06:44)
[2021-08-25] MEDS: BLOOD GLUCOSE MONITORING 1 DEV DEV FS SCH ×3 (07:30→16:30)
--- NOTE | 2021-08-25 07:30 | NUR ---
REPORT RECEIVED FROM PM SHIFT RN FOR CONTINUITY OF CARE. ETT TO VENT. RASS -3. AC/VC MODE. FIO2 40%, TV 400, RATE 16, PEEP 5. IV SITE LT EJ 20G AND LT AC 20G BOTH INTACT, PATENT, GOOD BLOOD RETURN. R FEMORAL CENTRAL LINE, TLC INFUSING LEVOPHED 5 MCG/MIN, NS 100 ML/HR, FENTANYL 1 MCG/KG/HR, VERSED 3 MG/HR. SKIN WARM AND DRY, NON INTACT, SEE WOUND ASSESSMENT. OGT CLAMPED. CADE CATHETER IN PLACE. HOB 30 DEGREES. BED LOCKED IN LOWEST POSITION. SAFETY PRECAUTIONS IN PLACE. WILL CONTINUE TO MONITOR.
--- NOTE | 2021-08-25 08:00 | NUR ---
ORAL CARE PROVIDED, PT REPOSITIONED.
[2021-08-25] MEDS: PANTOPRAZOLE 40 MG INJ VIAL IVP SCH (08:06)
[2021-08-25] MEDS: CLOPIDOGREL 75 MG TAB PO SCH (08:06)
[2021-08-25] MEDS: MULTIVITAMIN/MINERALS 1 TAB PO SCH (08:07)
[2021-08-25] MEDS: INSULIN LISPRO SLIDING SCALE 100 UNITS/ML VIAL SUBQ PRN ×4 (08:08→23:58)
[2021-08-25] MEDS: POTASSIUM CHLORIDE 20% 40 MEQ/15 ML UDC GT PRN (08:10)
--- NOTE | 2021-08-25 10:00 | NUR ---
HELD FENTANYL AND VERSED DRIPS FOR SEDATION VACATION AT THIS TIME, PER DR PAREDES.
--- NOTE | 2021-08-25 11:02 | NUR ---
08/25/21 RD INITIAL ASSESSMENT COMPLETED PLEASE REFER TO NUTRITION ASSESSMENT UNDER CARE ACTIVITY FOR ESTIMATED NUTRITIONAL NEEDS. 1. WHEN/IF MEDICALLY APPROPRIATE, RECOMMEND VITAL AF 1.2 WITH A GOAL RATE OF 40 ML/HR -FWF: 150 ML Q6H OR PER MD -START AT 10 ML/HR AND INCREASE BY 10 ML Q6H TOLERATED -WILL PROVIDE 1152 KCAL AND 72 GM PROTEIN 2. RECOMMEND STANLEY BID PER PROTOCOL -WITH STANLEY BID, PT WILL RECEIVE 1312 KCAL AND 77 GM PROTEIN, MEETING 87% KCAL AND 100% PROTEIN NEEDS 3. RD TO FOLLOW-UP 2-3 DAYS, HIGH RISK ANANTH OBRIEN RD
--- NOTE | 2021-08-25 11:18 | NUR ---
PT WAS PT ON CPAP/PS PER NURSE AND MD ORDER AT 10:45 AM. SETTINGS ARE PS 10 PEEP 5 FIO2 40%. PT TOLERATING WELL, WILL CONTINUE TO MONITOR.
--- NOTE | 2021-08-25 14:00 | NUR ---
DR MANCILLA AT BEDSIDE EXAMINING PT
--- NOTE | 2021-08-25 14:29 | NUR ---
RECEIVED CALL FROM PT'S HERASTOL, UPDATED ON PT STATUS. ALL QUESTIONS AND CONCERNS ANSWERED AT THIS TIME.
--- NOTE | 2021-08-25 16:00 | NUR ---
PT HAD 1 BM, PT CLEANED AND REPOSITIONED. ORAL CARE PROVIDED
--- NOTE | 2021-08-25 16:16 | NUR ---
NOVEL SWAB COLLECTED, DROPPED OF AT LAB
--- NOTE | 2021-08-25 18:45 | NUR ---
NEPRO FEEDING STARTED AT THIS TIME
--- NOTE | 2021-08-25 19:15 | NUR ---
Received report from MAY Oconnor RN. All questions answered. Changes noted Fentanyl Drip down to 0.5mcg/kg/hr & Versed down to 1mg/hr, patient now on Bilateral soft wrist restraints, on Accucheck q AC & HS., BM x1 small, soft, Black tarry, Trammell 300ml out.
--- NOTE | 2021-08-25 19:17 | NUR ---
REPORT GIVEN TO PM SHIFT RN FOR CONTINUITY OF CARE
--- NOTE | 2021-08-25 21:06 | NUR ---
Due meds were given, will monitor for signs & symptoms of adverse reaction. VS will also be monitored continously.
--- NOTE | 2021-08-25 23:39 | NUR ---
Turn & repositioned q2H. No pain or discomfort noted at this time.
[2021-08-26] VITALS (26 sets, daily range): BP systolic 97–167; BP diastolic 40–108
[2021-08-26] MEDS: BLOOD GLUCOSE MONITORING 1 DEV DEV FS SCH ×6 (00:02→21:26)
[2021-08-26] MEDS: NACL 0.9% 1,000 ML IV SCH ×3 (04:47→14:48)
[2021-08-26] MEDS: PIPERACILLIN/TAZOBACTAM 3.375 GM in DEXTROSE 5% 50 ML IV SCH ×3 (04:49→21:03)
[2021-08-26 06:18] LABS: HEMATOCRIT 23.9 % (36-48); HEMOGLOBIN 7.8 g/dL (12.0-16.0); MEAN CORPUSCULAR HEMOGLOBIN 31 pg (27-31); MEAN CORPUSCULAR HGB CONC 33 g/dL (33-37); MEAN CORPUSCULAR VOLUME 94.1 fL (80-94); PLATELET COUNT (AUTO) 168 K/uL (140-450); RED BLOOD CELL COUNT(AUTO) 2.54 MIL/uL (4.20-5.40); RED CELL DISTRIBUTION WIDTH 15.6 % (11.6-13.7); WHITE BLOOD COUNT (AUTO) 17.1 K/uL (4.8-10.8)
[2021-08-26 06:42] LABS: ANION GAP 13.8 (8-16); CARBON DIOXIDE 22.2 mmol/L (21-32); CHLORIDE 112 mmol/L (98-107); CREATININE 1.3 mg/dL (0.6-1.3); GLUCOSE 170 mg/dL (74-106); SODIUM SERUM 145 mmol/L (136-145); UREA NITROGEN, BLOOD 22 mg/dL (7-18)
--- NOTE | 2021-08-26 07:15 | NUR ---
RECEIVED REPORT FROM SAMANTHA HART FOR CONTINUITY OF CARE. PT SEDATED IN THE BED, RASS -3. ETT TO VENT, ACVC, FIO2 35%, R 16, VT 400, PEEP 5. RESPIRATIONS EVEN AND UNLABORED. SR ON MONITOR. OGT IN PLACE INFUSING NEPRO AT 10 ML/H W/ 150 ML Q6H H2O. F/C IN PLACE DRAINING TO GRAVITY. L EJ IV IN PLACE. L AC IV IN PLACE, PATENT AND INTACT. R FEMORAL TLC CENTRAL LINE IN PLACE, INFUSING VERSED AT 1 MG/H, LEVOPHED AT 4 MCG/MIN, NS AT 100 ML/H, AND FENTANYL 0.5 MCG/KG/H. SKIN NOT INTACT, SEE WOUND ASSESSMENT. DROPLET PRECAUTIONS IN PLACE FOR PUI. SAFETY PRECAUTIONS MET. CALL LIGHT WITHIN REACH. INITIAL ASSESSMENT COMPLETED, WILL CONTINUE TO MONITOR.
[2021-08-26 07:33] LABS: EOSINOPHILS % (MANUAL) 1 % (0-4); LYMPHOCYTES % (MANUAL) 16 % (20-46); MONOCYTES % (MANUAL) 2 % (5-12)
--- NOTE | 2021-08-26 07:50 | NUR ---
BSG 159, COVERED WITH 2 UNITS OF HUMALOG. WILL CONTINUE TO MONITOR.
[2021-08-26] MEDS: INSULIN LISPRO SLIDING SCALE 100 UNITS/ML VIAL SUBQ PRN ×3 (08:21→16:34)
[2021-08-26] MEDS: PANTOPRAZOLE 40 MG INJ VIAL IVP SCH (08:47)
[2021-08-26] MEDS: CLOPIDOGREL 75 MG TAB PO SCH (08:47)
[2021-08-26] MEDS: POTASSIUM CHLORIDE 20% 40 MEQ/15 ML UDC GT PRN ×2 (08:48→21:06)
[2021-08-26] MEDS: MULTIVITAMIN/MINERALS 1 TAB PO SCH (08:48)
--- NOTE | 2021-08-26 09:00 | NUR ---
SCHEDULED MEDS ADMINISTERED. NADR. WILL CONTINUE TO MONITOR.
[2021-08-26] MEDS: NOREPINEPHRINE 8 MG in DEXTROSE 5% 250 ML IV PRN (09:30)
[2021-08-26] MEDS ORDERED: VANCOMYCIN 1,000 MG in DEXTROSE 5% 250 ML IV SCH (11:00)
--- NOTE | 2021-08-26 11:00 | NUR ---
CALLED, UPDATED REGARDING PT CONDITION VIA TELEPHONE.
--- NOTE | 2021-08-26 11:30 | NUR ---
BSG 196. COVERED WITH 2 UNITS OF HUMALOG PER MD ORDER. WILL CONTINUE TO MONITOR.
--- NOTE | 2021-08-26 11:50 | NUR ---
SEEN AND EXAMINED BY DR MURRY. ORDERS CARRIED OUT.
[2021-08-26] MEDS ORDERED: POTASSIUM CHLORIDE 10 MEQ TABER PO SCH (12:05)
--- NOTE | 2021-08-26 13:45 | NUR ---
HELD SEDATION FOR SBT TRIALS PER DR JEANMARIE WHEELER. RT MICHELLE TORRES.
--- NOTE | 2021-08-26 15:10 | NUR ---
RT AT BEDSIDE, INITIATED SBT TRIALS PER DR JEANMARIE WHEELER.
--- NOTE | 2021-08-26 15:40 | NUR ---
RT AT BEDSIDE, SBT TRIAL OVER, PT TOLERATED WELL. PT NOT ALERT, DOES NOT FOLLOW COMMANDS.
--- NOTE | 2021-08-26 15:40 | NUR ---
PLACED PATIENT BACK ON ACVC MODE. PATIENT COMPLETED 30 MINUTES OF SBT TRIAL WITHOUT INCIDENT. PATIENT NOT FULLY ALERT. PATIENT DOES NOT FOLLOW COMMANDS. NO DISTRESS NOTED DURING SBT TRIAL. WILL CONTINUE TO MONITOR. TANNER TORRES.
--- NOTE | 2021-08-26 16:00 | NUR ---
PT CLEANED AND REPOSITIONED. TOLERATED FAIRLY, SPO2 85% FOR ONE MINUTE. RETURNED TO 95%. WILL CONTINUE TO MONITOR.
--- NOTE | 2021-08-26 16:30 | NUR ---
SEEN AND EXAMINED BY DR MANCILLA.
--- NOTE | 2021-08-26 16:30 | NUR ---
BSG 202, COVERED WITH 4 UNITS OF HUMALOG PER MD ORDER.
--- NOTE | 2021-08-26 19:05 | NUR ---
ENDORSED BEDSIDE REPORT TO SAMANTHA HART FOR CONTINUITY OF CARE.
--- NOTE | 2021-08-26 19:10 | NUR ---
Receivedreport from MAY Puente RE RECORDING MIXER. All questions answered. Changes noted. All Drips off ( Versed, Fentanyl & Levophed Drip), In Vent setting FiO2 down to 30% , Accucheck @1630= 202 covered with 4 units Humalog SQ.
--- NOTE | 2021-08-26 21:00 | NUR ---
Due medications given, tolerated well, will continue to monitor for any signs & symptoms of adverse reactions.
[2021-08-26] MEDS: ATORVASTATIN 20 MG TAB PO SCH (21:03)
[2021-08-27] VITALS (25 sets, daily range): BP systolic 90–134; BP diastolic 45–127
--- NOTE | 2021-08-27 00:15 | NUR ---
Turn & reposition q2h, No pain or discomfort noted at this time, will continue to monitor Vital Signs as ordered.
--- NOTE | 2021-08-27 05:00 | NUR ---
Total care given, pericare done, tolerated well, changed gown, linen, & Chaulks, made clean, Dry & comfortable.
[2021-08-27] MEDS: NACL 0.9% 1,000 ML IV SCH ×2 (05:30→12:55)
[2021-08-27] MEDS: PIPERACILLIN/TAZOBACTAM 3.375 GM in DEXTROSE 5% 50 ML IV SCH (05:37)
[2021-08-27] MEDS: INSULIN LISPRO SLIDING SCALE 100 UNITS/ML VIAL SUBQ PRN ×4 (05:50→22:45)
--- NOTE | 2021-08-27 05:50 | NUR ---
BS= 218mg/dl, covered with 4units Humalog SQ.
[2021-08-27] MEDS: BLOOD GLUCOSE MONITORING 1 DEV DEV FS SCH ×4 (06:58→21:00)
--- NOTE | 2021-08-27 07:09 | NUR ---
RECEIVED REPORT FROM SAMANTHA HART FOR CONTINUITY OF CARE. PT SEDATED IN THE BED, RASS -3. ETT TO VENT, ACVC, FIO2 30%, R 16, VT 400, PEEP 5. RESPIRATIONS EVEN AND UNLABORED. SR ON MONITOR. OGT IN PLACE INFUSING NEPRO AT 20 ML/H W/ 150 ML Q6H H2O. F/C IN PLACE DRAINING TO GRAVITY. L EJ IV IN PLACE. L AC IV IN PLACE. R FEMORAL TLC CENTRAL LINE IN PLACE, INFUSING VERSED AT 3 MG/H, LEVOPHED HELD, NS AT 100 ML/H, AND FENTANYL HELD. SKIN NOT INTACT, SEE WOUND ASSESSMENT. DROPLET PRECAUTIONS IN PLACE FOR PUI. SAFETY PRECAUTIONS MET. CALL LIGHT WITHIN REACH. INITIAL ASSESSMENT COMPLETED, WILL CONTINUE TO MONITOR.
--- NOTE | 2021-08-27 07:09 | NUR ---
Report given to MAY Puente PATTERN MOLDER, All questions answered.
[2021-08-27] MEDS: PANTOPRAZOLE 40 MG INJ VIAL IVP SCH (09:41)
[2021-08-27] MEDS: MULTIVITAMIN/MINERALS 1 TAB PO SCH (09:41)
[2021-08-27] MEDS: CLOPIDOGREL 75 MG TAB PO SCH (09:41)
[2021-08-27 10:35] LABS: BASOPHILS % (AUTO) 0.4 % (0.0-2.0); EOSINOPHILS % (AUTO) 0.3 % (0.0-4.0); HEMATOCRIT 22.7 % (36-48); HEMOGLOBIN 7.5 g/dL (12.0-16.0); LYMPHOCYTES # (AUTO) 1.3 K/uL (2.5-16.5); LYMPHOCYTES % (AUTO) 14.2 % (20.5-51.1); MEAN CORPUSCULAR HEMOGLOBIN 31 pg (27-31); MEAN CORPUSCULAR HGB CONC 33 g/dL (33-37); MEAN CORPUSCULAR VOLUME 93.5 fL (80-94); MONOCYTES # (AUTO) 0.3 K/uL (0.8-1.0); MONOCYTES % (AUTO) 3.7 % (1.7-9.3); NEUTROPHILS # (AUTO) 7.6 K/uL (1.8-7.7); NEUTROPHILS % (AUTO) 81.4 % (42.2-75.2); PLATELET COUNT (AUTO) 95 K/uL (140-450); RED BLOOD CELL COUNT(AUTO) 2.43 MIL/uL (4.20-5.40); RED CELL DISTRIBUTION WIDTH 15.6 % (11.6-13.7); WHITE BLOOD COUNT (AUTO) 9.3 K/uL (4.8-10.8)
[2021-08-27 10:40] LABS: CARBON DIOXIDE 23.4 mmol/L (21-32); CHLORIDE 111 mmol/L (98-107); CREATININE 1.2 mg/dL (0.6-1.3); GLUCOSE 233 mg/dL (74-106); POTASSIUM 3.4 mmol/L (3.5-5.1); SODIUM SERUM 142 mmol/L (136-145); UREA NITROGEN, BLOOD 16 mg/dL (7-18)
--- NOTE | 2021-08-27 11:00 | NUR ---
SEEN AND EXAMINED BY DR MANTILLA.
[2021-08-27] MEDS ORDERED: VANCOMYCIN HCL 1.25 GM in DEXTROSE 5% 250 ML IV SCH (11:30)
--- NOTE | 2021-08-27 13:15 | NUR ---
SEEN AND EXAMINED BY DR MURRY.
[2021-08-27] MEDS: MEROPENEM 1,000 MG in NACL 0.9% 50 ML IV SCH ×2 (13:50→22:23)
--- NOTE | 2021-08-27 16:00 | NUR ---
SEEN AND EXAMINED BY DR POWERS.
--- NOTE | 2021-08-27 19:20 | NUR ---
ENDORSED BEDSIDE REPORT TO JACQUIE HART FOR CONTINUITY OF CARE.
[2021-08-27] MEDS: ATORVASTATIN 20 MG TAB PO SCH (22:25)
[2021-08-28] VITALS (29 sets, daily range): BP systolic 106–157; BP diastolic 60–92
[2021-08-28 05:52] LABS: BASOPHILS # (AUTO) 0.1 K/uL (0.00-0.22); BASOPHILS % (AUTO) 0.7 % (0.0-2.0); EOSINOPHILS # (AUTO) 0.4 K/uL (0-0.4); EOSINOPHILS % (AUTO) 3.1 % (0.0-4.0); HEMATOCRIT 23.1 % (36-48); HEMOGLOBIN 7.6 g/dL (12.0-16.0); LYMPHOCYTES # (AUTO) 1.9 K/uL (2.5-16.5); LYMPHOCYTES % (AUTO) 16.1 % (20.5-51.1); MEAN CORPUSCULAR HEMOGLOBIN 31 pg (27-31); MEAN CORPUSCULAR HGB CONC 33 g/dL (33-37); MEAN CORPUSCULAR VOLUME 92.5 fL (80-94); MONOCYTES # (AUTO) 0.8 K/uL (0.8-1.0); NEUTROPHILS # (AUTO) 8.6 K/uL (1.8-7.7); NEUTROPHILS % (AUTO) 73.1 % (42.2-75.2); PLATELET COUNT (AUTO) 105 K/uL (140-450); RED CELL DISTRIBUTION WIDTH 15.2 % (11.6-13.7); WHITE BLOOD COUNT (AUTO) 11.7 K/uL (4.8-10.8)
[2021-08-28] MEDS: NACL 0.9% 1,000 ML IV SCH ×2 (06:07→08:24)
[2021-08-28] MEDS: MEROPENEM 1,000 MG in NACL 0.9% 50 ML IV SCH ×3 (06:12→21:44)
[2021-08-28 06:38] LABS: ANION GAP 11.2 (8-16); CHLORIDE 110 mmol/L (98-107); CREATININE 1.2 mg/dL (0.6-1.3); GLUCOSE 188 mg/dL (74-106); POTASSIUM 3.2 mmol/L (3.5-5.1); SODIUM SERUM 142 mmol/L (136-145); UREA NITROGEN, BLOOD 13 mg/dL (7-18)
--- NOTE | 2021-08-28 07:45 | NUR ---
RECEIVED REPORT FROM BUILD MANAGER NURSE FOR CONTINUITY OF CARE. PT IS AOX0. ETT TO VENT, AC/VC, FIO2 30%, R 16, VT 400, PEEP 5. RESPIRATIONS EVEN AND UNLABORED. SR ON MONITOR. OGT IN PLACE INFUSING NEPRO AT 20 ML/H W/ 150 ML Q6H H2O. F/C IN PLACE DRAINING TO GRAVITY. LIJ 20G IV IN PLACE AND L AC 20G IV IN PLACE, PATENT AND INTACT. R FEMORAL TLC CENTRAL LINE IN PLACE. INTACT AND PATENT. INFUSING INFUSING NS AT 100 ML/HR. SKIN NOT INTACT, SEE WOUND ASSESSMENT. DROPLET PRECAUTIONS IN PLACE FOR PUI. SAFETY PRECAUTIONS MET. CALL LIGHT WITHIN REACH. INITIAL ASSESSMENT COMPLETED, WILL CONTINUE TO MONITOR.
[2021-08-28] MEDS: BLOOD GLUCOSE MONITORING 1 DEV DEV FS SCH ×4 (08:23→21:44)
[2021-08-28] MEDS: PANTOPRAZOLE 40 MG INJ VIAL IVP SCH (08:49)
[2021-08-28] MEDS: MULTIVITAMIN/MINERALS 1 TAB PO SCH (08:49)
[2021-08-28] MEDS: CLOPIDOGREL 75 MG TAB PO SCH (08:49)
--- NOTE | 2021-08-28 08:55 | NUR ---
ALL SCHEDULED MEDS GIVEN. PT IS STABLE. NO DISTRESS NOTED. WILL CONTINUE TO MONITOR.
[2021-08-28] MEDS: POTASSIUM CHLORIDE 20% 40 MEQ/15 ML UDC GT PRN (09:55)
--- NOTE | 2021-08-28 11:15 | NUR ---
CHECKED ON PT. PT IS STABLE. NO DISTRESS NOTED. WILL CONTINUE TO MONITOR.
[2021-08-28] MEDS: INSULIN LISPRO SLIDING SCALE 100 UNITS/ML VIAL SUBQ PRN ×3 (13:01→21:45)
--- NOTE | 2021-08-28 13:01 | NUR ---
BLOOD GLUCOSE CHECK WAS 240. ADMINISTERED 4 UNITS OF INSULIN SQ PER MD ORDERED
--- NOTE | 2021-08-28 14:40 | NUR ---
DR. MURRY AT BEDSIDE.
--- NOTE | 2021-08-28 14:45 | NUR ---
DR. MURRY AT [facility]. Addendum: 08/28/21 at 1536 by Jose Soto RN RN LE NOTE
--- NOTE | 2021-08-28 14:50 | NUR ---
08/28/21 RD FOLLOW UP COMPLETED PLEASE REFER TO NUTRITION ASSESSMENT UNDER CARE ACTIVITY FOR ESTIMATED NUTRITIONAL NEEDS. 1. RECOMMEND NEPRO WITH A NEW GOAL RATE OF 30 ML/HR -FWF: 150 ML Q6H OR PER MD -WILL PROVIDE 1296 KCAL AND 58 GM PROTEIN 2. RECOMMEND STANLEY BID PER PROTOCOL -WITH STANLEY BID, PT WILL RECEIVE 1456 KCAL AND 63 GM PROTEIN, MEETING ESTIMATED NUTRITIONAL GOALS 3. RD TO FOLLOW-UP 2-3 DAYS, HIGH RISK ANANTH OBRIEN RD
[2021-08-28] MEDS ORDERED: POTASSIUM CHLORIDE 20% 40 MEQ/15 ML UDC GT SCH (15:00)
--- NOTE | 2021-08-28 16:59 | NUR ---
BLOOD GLUCOSE CHECK WAS 204. ADMINISTERED 4 UNITS OF INSULIN SQ PER MD ORDERED.
--- NOTE | 2021-08-28 17:05 | NUR ---
TRANSPORTED PATIENT TO RADIOLOGY FOR HEAD CT.
--- NOTE | 2021-08-28 19:30 | NUR ---
ASSUMED CARE OF PT.INITIAL ASSESSMENT COMPLETED.PT OPENS EYES, TRACKS BUT NOT FOLLOWING COMMANDS AT THIS TIME.ST NOTED ON MONITOR.BUE WITH NON PITTING EDEMA NOTED.ETT TO VENT FIO2 26% TV 400 RATE 16 PEEP5 .W/TLC TO LT FEMORAL INTACT, ONLY BLUE PORT HAS BLOOD RETURN.SALINE LOCK.W/OGT INTACT.NO RESIDUALS NOTED.ON CONTINUOUS TUBE FEEDING ORDERED.W/DRY AND INTACT DRESSING TO LT UPPER HIP W/INTACT SASCHA AND LOWER HIP ALSO W/INTACT SASCHA.W/PRESSURE ULCER TO SACROCOCCYGEAL AREA, INTACT DRESSING.W/CADE CATHETER TO BSD DRAINING SMALL AMT OF YELLOW URINE.W/LARGE AMT OF SOFT TO LIQUID STOOL NOTED.PT CLEANED.REPOSITIONED.FLACC 0.ALL EXTREMITIES WITH GENERALIZED WEAKNESS NOTED.
--- NOTE | 2021-08-28 19:30 | NUR ---
ENDORSED TO WATER CHASER NURSE FOR CONTINUITY OF CARE. PT IS STABLE.
--- NOTE | 2021-08-28 21:30 | NUR ---
ALL DUE MEDS GIVEN.NO DISTRESS NOTED AT THIS TIME
[2021-08-28] MEDS: ATORVASTATIN 20 MG TAB PO SCH (21:44)
[2021-08-29] VITALS (30 sets, daily range): BP systolic 108–174; BP diastolic 52–96
--- NOTE | 2021-08-29 | NUR ---
ORAL CARE USING VAP KIT RENDERED.REPOSITIONED.FLACC 0
--- NOTE | 2021-08-29 04:30 | NUR ---
MORNING CARE DONE ,ORAL CARE RENDERED.DRESSING TO SACROCOCCYGEAL PRESSURE ULCER CHANGED, SOILED AGAIN.
--- NOTE | 2021-08-29 05:30 | NUR ---
PT AWAKE, ABLE TO FOLLOW SIMPLE COMMANDS LIKE BLINKING OF EYES TWICE FOR YES, DENIES PAIN.
[2021-08-29] MEDS: MEROPENEM 1,000 MG in NACL 0.9% 50 ML IV SCH ×3 (05:41→20:22)
[2021-08-29] MEDS: INSULIN LISPRO SLIDING SCALE 100 UNITS/ML VIAL SUBQ PRN ×4 (05:49→20:30)
[2021-08-29] MEDS: BLOOD GLUCOSE MONITORING 1 DEV DEV FS SCH ×4 (05:49→20:29)
[2021-08-29 06:13] LABS: BASOPHILS % (AUTO) 0.5 % (0.0-2.0); EOSINOPHILS # (AUTO) 0.2 K/uL (0-0.4); EOSINOPHILS % (AUTO) 2.1 % (0.0-4.0); HEMATOCRIT 23.1 % (36-48); HEMOGLOBIN 7.8 g/dL (12.0-16.0); LYMPHOCYTES # (AUTO) 1.6 K/uL (2.5-16.5); LYMPHOCYTES % (AUTO) 17.1 % (20.5-51.1); MEAN CORPUSCULAR HEMOGLOBIN 31 pg (27-31); MEAN CORPUSCULAR HGB CONC 34 g/dL (33-37); MONOCYTES # (AUTO) 0.5 K/uL (0.8-1.0); MONOCYTES % (AUTO) 5.5 % (1.7-9.3); NEUTROPHILS # (AUTO) 6.8 K/uL (1.8-7.7); NEUTROPHILS % (AUTO) 74.8 % (42.2-75.2); PLATELET COUNT (AUTO) 110 K/uL (140-450); RED BLOOD CELL COUNT(AUTO) 2.53 MIL/uL (4.20-5.40); RED CELL DISTRIBUTION WIDTH 15.6 % (11.6-13.7); WHITE BLOOD COUNT (AUTO) 9.1 K/uL (4.8-10.8)
[2021-08-29 07:06] LABS: ALBUMIN 1.5 g/dL (3.4-5.0); ASPARTATE AMINOTRANSFERASE 26 U/L (15-37); CHLORIDE 110 mmol/L (98-107); CREATININE 1.1 mg/dL (0.6-1.3); GLUCOSE 232 mg/dL (74-106); SODIUM SERUM 144 mmol/L (136-145); TOTAL BILIRUBIN 0.3 mg/dL (0.0-1.0); UREA NITROGEN, BLOOD 13 mg/dL (7-18)
[2021-08-29 07:09] LABS: MAGNESIUM 1.5 mg/dL (1.8-2.4); PHOSPHORUS 1.9 mg/dL (2.5-4.9)
--- NOTE | 2021-08-29 07:15 | NUR ---
REPORT GIVEN TO RAMA HART FOR CONTINUITY OF CARE
[2021-08-29 07:19] LABS: VANCOMYCIN,TROUGH 15.1 ug/ml (5-15)
--- NOTE | 2021-08-29 07:30 | NUR ---
RECEIVED REPORT FROM TELEPHONE INTERVIEWER NURSE FOR CONTINUITY OF CARE. PT IS AOX1. OPENS EYES AND TRACKS, ABLE TO BLINK EYES WHEN PROMPTED. ETT TO VENT, AC/VC, FIO2 26%, R 16, VT 400, PEEP 5. RESPIRATIONS EVEN AND UNLABORED. SR ON MONITOR. OGT IN PLACE INFUSING NEPRO AT 30 ML/H W/ 150 ML Q6H H2O. F/C IN PLACE DRAINING TO GRAVITY. R FEMORAL TLC CENTRAL LINE IN PLACE. INTACT AND PATENT. INFUSING INFUSING NS AT TKO. SKIN NOT INTACT, SEE WOUND ASSESSMENT. DROPLET PRECAUTIONS IN PLACE FOR PUI. SAFETY PRECAUTIONS MET. CALL LIGHT WITHIN REACH. INITIAL ASSESSMENT COMPLETED, WILL CONTINUE TO MONITOR.
--- NOTE | 2021-08-29 07:50 | NUR ---
RECEIVED ON A [employer]APE R860 VENTILATOR PLUGGED INTO RED OUTLET TOLERATING WELL WITHOUT COMPLICATIONS NOTED TO AN ENDOTRACHEAL TUBE #8.0 SECURED AT 22cm TEETH/GUM WITH AN ANCHOR FAST CUFF PRESSURE CHECKED NOTED AMBU BAG AT BEDSIDE LOC ASLEEP EASILY AWAKENS EQUAL CHEST RISE GOOD AERATION THROUGHOUT BILATERAL LUNG AGUIRRE AIRWAY PATENT
[2021-08-29] MEDS: FUROSEMIDE 20 MG/2 ML VIAL IVP SCH (09:00)
[2021-08-29] MEDS ORDERED: VANCOMYCIN 1,000 MG in DEXTROSE 5% 250 ML IV SCH (09:00)
[2021-08-29] MEDS: PANTOPRAZOLE 40 MG INJ VIAL IVP SCH (09:00)
[2021-08-29] MEDS: MULTIVITAMIN/MINERALS 1 TAB PO SCH (09:00)
[2021-08-29] MEDS: CLOPIDOGREL 75 MG TAB PO SCH (09:00)
--- NOTE | 2021-08-29 09:00 | NUR ---
DUE MEDS GIVEN. ORAL CARE AND CADE CARE DONE. TURNED AND REPOSITIONED
--- NOTE | 2021-08-29 09:25 | NUR ---
RESTING COMFORTABLY EQUAL CHEST RISE GOOD AERATION THROUGHOUT BILATERAL LUNG AGUIRRE AIRWAY PATENT PLACED PATIENT ON SBT MODE NOTED PATIENT UNABLE TO PARTICIPATE IN WEANING TRIALS FIELD SERVICE TECHNICIAN TO MONITOR RAMA/RN NOTIFIED
[2021-08-29] MEDS: POTASSIUM CHLORIDE 20% 40 MEQ/15 ML UDC GT PRN (10:14)
--- NOTE | 2021-08-29 11:10 | NUR ---
RESTING WELL TOLERATING SBT/CPSP TRIAL WELL WITHOUT EVIDENCE OF RESPIRATORY DISTRESS NOTED EQUAL CHEST RISE GOOD AERATION THROUGHOUT BILATERAL LUNG AGUIRRE AIRWAY PATENT
--- NOTE | 2021-08-29 11:26 | NUR ---
CALLED DR. VIN MURRY AT [facility] TO REVIEW ABG SAMPLE REPORT, PATIENT PULMONARY AND SBT STATUS KIMI QUIJANO TO ISHAN PINEDA MD
--- NOTE | 2021-08-29 11:45 | NUR ---
CALL BACK FROM DR. VIN MURRY REVIEWED ABG SAMPLE REPORT, PATIENT PULMONARY AND SBT/CPAP STATUS VORBO: PLACE PATIENT BACK ON FULL MECHANICAL SUPPORT AT THIS TIME UNTIL MD PATIENT VISIT
--- NOTE | 2021-08-29 11:53 | NUR ---
PT BACK ON VENT SUPPORT ORDERED BY DR MURRY, DR MURRY WILL SEE PT
--- NOTE | 2021-08-29 11:53 | NUR ---
TOLERATED SBT/CPAP TRIALS WELL WITHOUT DISTRESS NOTED GOOD CHEAT RISE AIRWAY PATENT PER GAGE MURRY NOTED AT [address] PATIENT BACK ON FULL MECHANICAL SUPPORT NOTED AT 1156
--- NOTE | 2021-08-29 15:18 | NUR ---
PT AWAKE IN BED AT THIS TIME, NO APPARENT DISTRESS
--- NOTE | 2021-08-29 16:00 | NUR ---
DR. VIN MURRY AT BEDSIDE PLACED PATIENT ON CPAP P5 PS10 REVIEWED SpVt, RR, SATURATION; ABG RESULTS DRAWN AT 1120 Ph 7.476 pCO2 27.4 pO2 99.2 HCO3 19.8 BE -3.[address] MURRY (RAMA/RN) INFUSE 1 AMP TONIGHT AND 1 AMP IN MORNING; (JUN/LOGAN) RESUME SBT/CPAP TRIAL IN AM; DRAW ABG
--- NOTE | 2021-08-29 16:00 | NUR ---
ASLEEP EASILY AWAKEN RESPONSIVE TO INDUSTRIAL ENERGY ENGINEER VERBAL COMMANDS "INDUSTRIAL ENERGY ENGINEER REQUESTED PATIENT TO RAISE RIGHT ARM/HAND SUPERVISOR MALT HOUSE THE PATIENT RESPONDED BY RAISING HER RIGHT ARM/HAND DR. VIN MURRY AT BEDSIDE
--- NOTE | 2021-08-29 16:00 | NUR ---
SEEN AND EXAMINED BY DR MURRY, ORDERS NOTED AND CARRIED OUT
[2021-08-29] MEDS ORDERED: SODIUM BICARBONATE 8.4% PFS 50 MEQ/50 ML SYR IVP SCH (16:30)
--- NOTE | 2021-08-29 16:50 | NUR ---
RESTING COMFORTABLY EQUAL CHEST RISE ENDOTRACHEAL SUCTION FOR SMALL THIN YELLOW SECRETIONS AIRWAY PATENT
--- NOTE | 2021-08-29 17:30 | NUR ---
JJ CARE DONE, TURNED AND REPOSITIONED
--- NOTE | 2021-08-29 19:30 | NUR ---
ASSUMED CARE OF PT.INITIAL ASSESSMENT COMPLETED.PT AWAKE, NODS/SHAKES HEAD TO QUESTIONS.ST NOTED ON MONITOR.ETT TO VENT FIO2 24% TV 400 RATE 16 PEEP5 .W/TLC TO LT FEMORAL INTACT, NO BLOOD RETURN NOTED TO ALL 3 PORTS.W/OGT INTACT.NO RESIDUALS NOTED.ON CONTINUOUS TUBE FEEDING ORDERED.W/DRY AND INTACT DRESSING TO LT UPPER HIP W/INTACT SASCHA AND LOWER HIP ALSO W/INTACT SASCHA.BUE WITH NON PITTING EDEMA NOTED.W/PRESSURE ULCER TO SACROCOCCYGEAL AREA, INTACT DRESSING.W/CADE CATHETER TO BSD DRAINING SMALL AMT OF YELLOW URINE.REPOSITIONED.FLACC 0.
[2021-08-29] MEDS: ATORVASTATIN 20 MG TAB PO SCH (20:22)
[2021-08-29] MEDS: MORPHINE SULFATE 2 MG/ML SYR IVP PRN (22:02)
[2021-08-30] VITALS (27 sets, daily range): BP systolic 77–159; BP diastolic 41–91
--- NOTE | 2021-08-30 00:48 | NUR ---
PHONE CALL TO [facility], CARDIOPULMONARY TECHNOLOGIST CHIEF IS DR ZAMORA, INFORMED PHYSICIAN THAT CARDIAC RHYTHM OF PT CONVERTED TO ATRIAL FIBRILLATION, ORDERED EKG,CONFIRMED ATRIAL FIBRILLATION, TO GIVE 20MG DILTIAZEM IVP X 1 NOW.CARRIED OUT
[2021-08-30] MEDS ORDERED: DILTIAZEM 25 MG/5 ML VIAL IVP SCH (00:50)
--- NOTE | 2021-08-30 03:18 | NUR ---
PT STILL AWAKE; DENIES PAIN AT THIS TIME.REPOSITIONED.
--- NOTE | 2021-08-30 04:00 | NUR ---
ORAL CARE DONE.DRESSING TO RT FEMORAL CENTRAL LINE CHANGED.
--- NOTE | 2021-08-30 05:11 | NUR ---
MORNING CARE DONE.NO BM NOTED.DENIES PAIN.REPOSITIONED.
[2021-08-30] MEDS: MEROPENEM 1,000 MG in NACL 0.9% 50 ML IV SCH ×3 (05:20→21:52)
[2021-08-30] MEDS: BLOOD GLUCOSE MONITORING 1 DEV DEV FS SCH ×4 (06:50→21:56)
[2021-08-30] MEDS: INSULIN LISPRO SLIDING SCALE 100 UNITS/ML VIAL SUBQ PRN ×4 (06:51→21:58)
[2021-08-30 06:53] LABS: MAGNESIUM 1.9 mg/dL (1.8-2.4)
[2021-08-30 07:00] LABS: ANION GAP 12.7 (8-16); CARBON DIOXIDE 26.1 mmol/L (21-32); CHLORIDE 107 mmol/L (98-107); GLUCOSE 284 mg/dL (74-106); SODIUM SERUM 143 mmol/L (136-145); UREA NITROGEN, BLOOD 14 mg/dL (7-18)
[2021-08-30 07:05] LABS: POTASSIUM 2.8 mmol/L (3.5-5.1)
--- NOTE | 2021-08-30 07:05 | NUR ---
RECEIVED BEDSIDE REPORT FROM RAMU GRAHAM RN FOR CONTINUITY OF CARE. PT ASLEEP IN THE BED. ETT TO VENT, ACVC, FIO2 24%, VT 400, R 16, PEEP 5. SR ON MONITOR. NGT IN PLACE, INFUSING NEPRO AT 30 ML/H W/ 150 ML Q6H H20. R FEMORAL TCL CENTRAL LINE IN PLACE, INFUSING NS TKO AT 5 ML/H. F/C IN PLACE, DRAINING TO GRAVITY. SKIN NOT INTACT. SEE WOUND ASSESSMENT. STANDARD PRECAUTIONS IN PLACE. CALL LIGHT WITHIN REACH. SAFETY PRECAUTIONS MET. INITIAL ASSESSMENT COMPLETE. WILL CONTINUE TO CLOSELY MONITOR.
--- NOTE | 2021-08-30 07:52 | NUR ---
RECEIVED ON A [employer]r SoftwareSCAPE R860 VENTILATOR PLUGGED INTO RED OUTLET TOLERATING WELL WITHOUT ADVERSE REACTIONS NOTED TO AN ENDOTRACHEAL TUBE #8.0 SECURED AT 22cm TEETH/GUM LINE WITH AN ANCHOR FAST CUFF PRESSURE CHECKED NOTED AMBU BAG AT BEDSIDE LOC ASLEEP EASILY AWAKENS RESPONSIVE TO APPLICATION SUPPORT ADMINISTRATOR VERBAL COMMANDS GOOD CHEST RISE ENDOTRACHEAL SUCTION FOR SMALL THIN YELLOW SECRETIONS AIRWAY PATENT
--- NOTE | 2021-08-30 08:15 | NUR ---
RT AT BEDSIDE. STARTED SBT TRIAL.
--- NOTE | 2021-08-30 08:20 | NUR ---
SEEN AND EXAMINED BY
[2021-08-30] MEDS: KCL 20 MEQ/WATER INJ PREMIX 200 ML IV SCH (08:45)
[2021-08-30] MEDS ORDERED: SODIUM BICARBONATE 8.4% PFS 50 MEQ/50 ML SYR IVP SCH (09:00)
[2021-08-30] MEDS: FUROSEMIDE 20 MG/2 ML VIAL IVP SCH (09:11)
[2021-08-30] MEDS: PANTOPRAZOLE 40 MG INJ VIAL IVP SCH (09:11)
[2021-08-30] MEDS: CLOPIDOGREL 75 MG TAB PO SCH (09:12)
[2021-08-30] MEDS: MULTIVITAMIN/MINERALS 1 TAB PO SCH (09:12)
[2021-08-30] MEDS ORDERED: POTASSIUM CHLORIDE 10 MEQ TABER PO SCH (09:36)
[2021-08-30] MEDS ORDERED: MAG SULF 2000 MG/WATER PREMIX 50 ML IV SCH (10:00)
[2021-08-30] MEDS ORDERED: POTASSIUM PHOSPHATE 30 MM in NACL 0.9% 250 ML IV SCH ×5 (10:00→11:00)
--- NOTE | 2021-08-30 10:00 | NUR ---
SEEN AND EXAMINED BY DR HAYWARD. ORDERS RECEIVED
[2021-08-30] MEDS: MORPHINE SULFATE 2 MG/ML SYR IVP PRN (11:45)
--- NOTE | 2021-08-30 11:45 | NUR ---
PT IN PAIN AFTER ABG DRAW. MEDICATED WITH MORPHINE PER PRN ORDERS.
--- NOTE | 2021-08-30 11:48 | NUR ---
CALLED DR. VIN MURRY AT [facility] TO REVIEW ABG SAMPLE REPORT; PATIENT LOC, PULMONARY AND SBT/CPAP STATUS TEMO/EXCHANGE TO HOMAR PINEDA MD RETURN PHONE NUMBER AND REQUIRED PATIENT INFORMATION GIVEN
--- NOTE | 2021-08-30 12:00 | NUR ---
SEEN AND EXAMINED BY DR MURRY. RECEIVED EXTUBATION ORDERS.
--- NOTE | 2021-08-30 12:05 | NUR ---
DR. VIN MURRY AT BEDSIDE REVIEWED ABG SAMPLE REPORT (08/29 & 08/30); PATIENT LOC; PULMONARY AND SBT/CPAP STATUS VORBO: EXTUBATE PATIENT; SATURATION GREATER THAN 90%; HHN DUONEB Q6 AND Q4PRN FOR SOB/WHEEZE
--- NOTE | 2021-08-30 12:15 | NUR ---
RT AT BEDSIDE. PT EXTUBATED PER DR MURRY ORDERS. PLACED ON 2L NC. TOLERATING WELL. WILL CONTINUE TO CLOSELY MONITOR.
[2021-08-30] MEDS ORDERED: ALBUTEROL SULFATE/IPRATROPIU 3 ML SOL IH PRN (12:35)
[2021-08-30] MEDS: ALBUTEROL SULFATE/IPRATROPIU 3 ML SOL IH SCH ×2 (13:46→19:49)
--- NOTE | 2021-08-30 14:19 | NUR ---
08/30/21 RD FOLLOW UP COMPLETED PLEASE REFER TO NUTRITION ASSESSMENT UNDER CARE ACTIVITY FOR ESTIMATED NUTRITIONAL NEEDS. 1. WHEN/IF MEDICALLY APPROPRIATE, ADVANCE DIET PER SPEECH THERAPIST OR PER MD 2. RECOMMEND STANLEY BID PER PROTOCOL 3. RD TO FOLLOW-UP 2-3 DAYS, HIGH RISK ANANTH OBRIEN RD
--- NOTE | 2021-08-30 15:00 | NUR ---
SEEN AND EXAMINED BY DR POWERS.
--- NOTE | 2021-08-30 16:15 | NUR ---
PT CLEANED AND REPOSITIONED. TOLERATED WELL. WILL CONTINUE TO MONITOR.
--- NOTE | 2021-08-30 19:20 | NUR ---
ENDORSED BEDSIDE REPORT TO MULUGETA GRAHAM RN FOR CONTINUITY OF CARE.
[2021-08-30 19:47] LABS: BASOPHILS # (AUTO) 0.1 K/uL (0.00-0.22); BASOPHILS % (AUTO) 0.9 % (0.0-2.0); EOSINOPHILS # (AUTO) 0.1 K/uL (0-0.4); EOSINOPHILS % (AUTO) 1.4 % (0.0-4.0); HEMATOCRIT 23.4 % (36-48); HEMOGLOBIN 7.5 g/dL (12.0-16.0); LYMPHOCYTES # (AUTO) 1.6 K/uL (2.5-16.5); LYMPHOCYTES % (AUTO) 17.9 % (20.5-51.1); MEAN CORPUSCULAR HEMOGLOBIN 30 pg (27-31); MEAN CORPUSCULAR HGB CONC 32 g/dL (33-37); MEAN CORPUSCULAR VOLUME 94.4 fL (80-94); MONOCYTES # (AUTO) 0.5 K/uL (0.8-1.0); MONOCYTES % (AUTO) 6.1 % (1.7-9.3); NEUTROPHILS # (AUTO) 6.6 K/uL (1.8-7.7); NEUTROPHILS % (AUTO) 73.7 % (42.2-75.2); PLATELET COUNT (AUTO) 128 K/uL (140-450); RED BLOOD CELL COUNT(AUTO) 2.47 MIL/uL (4.20-5.40); RED CELL DISTRIBUTION WIDTH 16.1 % (11.6-13.7); WHITE BLOOD COUNT (AUTO) 8.9 K/uL (4.8-10.8)
[2021-08-30] MEDS: ATORVASTATIN 20 MG TAB PO SCH (21:52)
[2021-08-31] VITALS (13 sets, daily range): BP systolic 93–127; BP diastolic 47–83
[2021-08-31] MEDS: ALBUTEROL SULFATE/IPRATROPIU 3 ML SOL IH SCH ×4 (00:38→21:21)
--- NOTE | 2021-08-31 04:09 | NUR ---
attempted to change and reposition pt, pt refused. pt stated "later, not now". Addendum: 08/31/21 at 0411 by Teresa Curiel RN RN Amended: Links added.
--- NOTE | 2021-08-31 04:42 | NUR ---
PT ALLOWED FOR CHANGE AND REPOSITION.PT CLEANED UP, GOOD PERICARE PERFORMED,AND CENTRAL LINE DRESSING CHANGED. PT'S LINEN AND GOWN CHANGED.
[2021-08-31] MEDS: MEROPENEM 1,000 MG in NACL 0.9% 50 ML IV SCH ×3 (05:19→22:58)
[2021-08-31 06:47] LABS: ANION GAP 7.4 (8-16); CHLORIDE 107 mmol/L (98-107); CREATININE 1.2 mg/dL (0.6-1.3); GLUCOSE 200 mg/dL (74-106); POTASSIUM 3.4 mmol/L (3.5-5.1); SODIUM SERUM 141 mmol/L (136-145); UREA NITROGEN, BLOOD 16 mg/dL (7-18)
[2021-08-31 06:51] LABS: MAGNESIUM 2.4 mg/dL (1.8-2.4)
--- NOTE | 2021-08-31 07:09 | NUR ---
report given to cesar henry. transfer of care at this time.
--- NOTE | 2021-08-31 07:15 | NUR ---
RECEIVED BEDSIDE REPORT FROM MULUGETA GRAHAM RN FOR CONTINUITY OF CARE. PT ASLEEP IN THE BED. AAOX2. ON 2L NC. SR ON MONITOR. R FEMORAL TCL CENTRAL LINE IN PLACE, INFUSING NS TKO AT 5 ML/H. F/C IN PLACE, DRAINING TO GRAVITY. SKIN NOT INTACT. SEE WOUND ASSESSMENT. STANDARD PRECAUTIONS IN PLACE. CALL LIGHT WITHIN REACH. SAFETY PRECAUTIONS MET. INITIAL ASSESSMENT COMPLETE. WILL CONTINUE TO CLOSELY MONITOR.
[2021-08-31 07:19] LABS: BASOPHILS % (AUTO) 0.5 % (0.0-2.0); EOSINOPHILS # (AUTO) 0.2 K/uL (0-0.4); EOSINOPHILS % (AUTO) 1.8 % (0.0-4.0); HEMATOCRIT 22.4 % (36-48); HEMOGLOBIN 7.6 g/dL (12.0-16.0); LYMPHOCYTES # (AUTO) 1.5 K/uL (2.5-16.5); LYMPHOCYTES % (AUTO) 16.9 % (20.5-51.1); MEAN CORPUSCULAR HEMOGLOBIN 31 pg (27-31); MEAN CORPUSCULAR HGB CONC 34 g/dL (33-37); MEAN CORPUSCULAR VOLUME 93.2 fL (80-94); MONOCYTES # (AUTO) 0.6 K/uL (0.8-1.0); MONOCYTES % (AUTO) 6.7 % (1.7-9.3); NEUTROPHILS # (AUTO) 6.7 K/uL (1.8-7.7); NEUTROPHILS % (AUTO) 74.1 % (42.2-75.2); PLATELET COUNT (AUTO) 203 K/uL (140-450); RED BLOOD CELL COUNT(AUTO) 2.41 MIL/uL (4.20-5.40); RED CELL DISTRIBUTION WIDTH 16.3 % (11.6-13.7)
[2021-08-31] MEDS: BLOOD GLUCOSE MONITORING 1 DEV DEV FS SCH ×4 (08:14→21:00)
[2021-08-31] MEDS: INSULIN LISPRO SLIDING SCALE 100 UNITS/ML VIAL SUBQ PRN ×3 (08:15→18:03)
--- NOTE | 2021-08-31 08:30 | NUR ---
SEEN AND EXAMINED BY DR HAYWARD.
[2021-08-31] MEDS: KCL 20 MEQ/WATER INJ PREMIX 200 ML IV SCH (08:34)
[2021-08-31] MEDS: FUROSEMIDE 20 MG/2 ML VIAL IVP SCH (08:35)
[2021-08-31] MEDS: CLOPIDOGREL 75 MG TAB PO SCH (08:35)
[2021-08-31] MEDS: PANTOPRAZOLE 40 MG INJ VIAL IVP SCH (08:35)
[2021-08-31] MEDS: MULTIVITAMIN/MINERALS 1 TAB PO SCH (08:35)
--- NOTE | 2021-08-31 09:30 | NUR ---
SEEN AND EXAMINED BY DR ZAMORA. RECEIVED TRANSFER ORDERS.
[2021-08-31] MEDS ORDERED: VANCOMYCIN 1,000 MG in DEXTROSE 5% 250 ML IV SCH (10:00)
--- NOTE | 2021-08-31 10:45 | NUR ---
SEEN AND EXAMINED BY DR MURRY.
--- NOTE | 2021-08-31 12:00 | NUR ---
PT CLEANED AND REPOSITIONED. TOLERATED WELL. S BM. WILL CONTINUE TO CLOSELY MONITOR.
--- NOTE | 2021-08-31 14:00 | NUR ---
ENDORSED REPORT VIA TELEPHONE TO DIPTI ESPANA RN FOR CONTINUITY OF CARE.
--- NOTE | 2021-08-31 14:40 | NUR ---
PT TRANSFERRED TO [facility] BED 106B WITH DIPTI HART.
--- NOTE | 2021-08-31 14:45 | NUR ---
RECEIVED PT TO [facility] BED 106B FOR CONTINUITY OF CARE FROM ICU. PT IS BREATHING EVEN AND UNLABORED. NO SIGNS OF DISTRESS NOTED. PT MIDLINE IN RIGHT FEMORAL IS INTACT AND PATENT AND CLEAN. PT IS STABLE.
--- NOTE | 2021-08-31 16:00 | NUR ---
PT BREATHING IS EVEN AND UNLABORED. NO S/S OF DISTRESS NOTED. PT IS STABLE.
[2021-08-31] MEDS ORDERED: MORPHINE SULFATE 2 MG/ML SYR IVP PRN (18:35)
--- NOTE | 2021-08-31 19:45 | NUR ---
PT ENDORSED TO [place] [employer] NURSE FOR CONTINUITY OF CARE. POC DISCUSSED.
[2021-08-31] MEDS: ATORVASTATIN 20 MG TAB PO SCH (22:57)
[2021-08-31] MEDS: ACETAMINOPHEN 325 MG TAB PO PRN (23:15)
[2021-09-01] MEDS: ALBUTEROL SULFATE/IPRATROPIU 3 ML SOL IH SCH ×4 (01:00→19:00)
[2021-09-01] MEDS: MEROPENEM 1,000 MG in NACL 0.9% 50 ML IV SCH ×3 (04:05→21:01)
--- NOTE | 2021-09-01 04:10 | NUR ---
PT REQUESTING FOOD - GIVEN PER PT REQUEST - TUNA [employer] SANDWICH AND MILK.
[2021-09-01] MEDS: BLOOD GLUCOSE MONITORING 1 DEV DEV FS SCH ×4 (07:20→20:56)
[2021-09-01 07:27] LABS: BASOPHILS % (AUTO) 0.6 % (0.0-2.0); EOSINOPHILS # (AUTO) 0.3 K/uL (0-0.4); EOSINOPHILS % (AUTO) 4.2 % (0.0-4.0); HEMATOCRIT 22.8 % (36-48); HEMOGLOBIN 7.5 g/dL (12.0-16.0); LYMPHOCYTES # (AUTO) 1.6 K/uL (2.5-16.5); LYMPHOCYTES % (AUTO) 19.6 % (20.5-51.1); MEAN CORPUSCULAR HEMOGLOBIN 31 pg (27-31); MEAN CORPUSCULAR HGB CONC 33 g/dL (33-37); MEAN CORPUSCULAR VOLUME 93.5 fL (80-94); MONOCYTES # (AUTO) 0.5 K/uL (0.8-1.0); MONOCYTES % (AUTO) 6.9 % (1.7-9.3); NEUTROPHILS # (AUTO) 5.5 K/uL (1.8-7.7); NEUTROPHILS % (AUTO) 68.7 % (42.2-75.2); PLATELET COUNT (AUTO) 191 K/uL (140-450); RED BLOOD CELL COUNT(AUTO) 2.44 MIL/uL (4.20-5.40); RED CELL DISTRIBUTION WIDTH 16.1 % (11.6-13.7)
[2021-09-01 07:28] LABS: ANION GAP 11.8 (8-16); CARBON DIOXIDE 29.4 mmol/L (21-32); CHLORIDE 108 mmol/L (98-107); CREATININE 1.4 mg/dL (0.6-1.3); GLUCOSE 203 mg/dL (74-106); POTASSIUM 4.2 mmol/L (3.5-5.1); SODIUM SERUM 145 mmol/L (136-145); UREA NITROGEN, BLOOD 17 mg/dL (7-18)
--- NOTE | 2021-09-01 07:45 | NUR ---
RECEIVED PT FROM NIGHT RN, PT IS AWAKE AND LYING ON THE BED, WITH SIDE RAILS UP AND CALL LIGHT WITHIN REACH, PT IS ON RA, CADE CATHETER IN PLACE, PT HAS A RIGHT FEMORAL CENTRAL LINE TRIPLE, PT HAS A SACRAL OPEN WOUND, NO SIGN OF DISTRESS NOTED AND WILL CONTINUE TO MONITOR PT.
[2021-09-01 07:49] LABS: MAGNESIUM 2.4 mg/dL (1.8-2.4); PHOSPHORUS 2.8 mg/dL (2.5-4.9)
[2021-09-01 08:00] VITALS: BP 120/77
[2021-09-01] MEDS: PANTOPRAZOLE 40 MG INJ VIAL IVP SCH (09:49)
[2021-09-01] MEDS: MULTIVITAMIN/MINERALS 1 TAB PO SCH (09:49)
[2021-09-01] MEDS: CLOPIDOGREL 75 MG TAB PO SCH (09:57)
[2021-09-01 12:00] VITALS: BP 138/69
[2021-09-01] MEDS: INSULIN LISPRO SLIDING SCALE 100 UNITS/ML VIAL SUBQ PRN (12:21)
--- NOTE | 2021-09-01 12:27 | NUR ---
PT WAS GIVEN SCHEDULED IVPB MEDICATION AND INSULIN 8 UNITS VIA LEFT DELTOID FOR BLOOD GLUCOSE OF 226.
--- NOTE | 2021-09-01 12:31 | NUR ---
09/01/21 RD FOLLOW UP COMPLETED PLEASE REFER TO NUTRITION ASSESSMENT UNDER CARE ACTIVITY FOR ESTIMATED NUTRITIONAL NEEDS. 1. CONTINUE PUREE DIET TOLERATED 2. RECOMMEND MIGHTY SHAKES TID PER PROTOCOL 3. RD TO FOLLOW-UP 3-5 DAYS, MODERATE RISK ANANTH OBRIEN RD
--- NOTE | 2021-09-01 14:19 | NUR ---
DC PLANNING: THE PATIENT ADMITTED FROM [facility] FOR [facility]. PATIENT WAS INTUBATED AND ADMITTED TO THE ICU, ADMITTING DX OF SEPSIS AND RESPIRATORY FAILURE. NOW AT TELEMETRY STATUS ON ABX OF [facility]. CHAGO SPOKE WITH WARREN AT [facility], PATIENT HAS BEEN WORKING WITH P.T. BUT NOT AMBULATING DUE H/O FX. SHE REQUIRES ASSISTANCE WITH ADL'S BUT IS ABLE TO FEED HERSELF. CLINICAL PACKET FAXED TO [facility] IN [place] OF [place] TOMORROW, [facility] WILL NEED TO BE CALLED, PHONE NUMBER [phone]. CHAGO ATTEMPTED TO SPEAK WITH THE PATIENT BUT SHE WAS UNABLE TO ENGAGE IN CONVERSATION, UNABLE TO STAY AWAKE. FACILITY STATES THAT THE PATIENT IS NORMALLY AWAKE AND ALERT. CHAGO TRIED TO REACH HER BUT HIS VM IS FULL. CM WILL FOLLOW. Addendum: 09/05/21 at 1236 by Cecelia Thornton RN DC PLANNING: PATIENT HAS AN ORDER TO GO BACK TO [facility] . FAXED ALL PAPERWORK TO [facility]. CHAGO TO FOLLOW Addendum: 09/05/21 at 1434 by Cecelia Thornton RN DC PLANNING: PATIENT ACCEPTED AT [facility] CAN GO TO ROOM 38C, ACCEPTING DR HARPER ARRANGED TRANSPORT WITH [facility] AWAITING FOR ETA. CM TO FOLLOW Addendum: 09/05/21 at 1640 by Cecelia Thornton RN DC PLANNING ARRANGED TRANSPORT WITH [employer] [facility] [facility] TIME BETWEEN 5:30 TO 6 PM # TO GIVE REPORT [phone] CM TO FOLLOW
--- NOTE | 2021-09-01 14:33 | NUR ---
SKIN ASSESSMENT DONE WITH PRIMARY RN ON THIS 75 Y/O PT. WITH A PAST MEDICAL HISTORY OF HLD, DM, HTN, CVA. PT HAD RECENT LEFT FEMUR FRACTURE REQUIRING ORIF AT [facility]. PT. ADMITTED FROM SNF WITH SHORTNESS OF BREATH. PT. ADMITTED WITH SACRAL COCCYX PRESSURE INJURY AND SERVERE MOISTUR ASSOCIATED DERMATITIS TO PERINEUM AND MEDIAL THIGHS. PER PRIMARY RN SACRAL WOUND WITH CHANGE OF CONDITION. WOUND PHOTO OBTAINED. PT. SKIN WARM AND FLAKY. F/C LEAKAGE PRIMARY RN NOTIFIED; PT. INCONTINENT WITH SMALL AMOUNT SOFT BM DURING ASSESSMENT, 08/29/2021 ALBUMIN LEVEL ONLY 1.5CM WILL KEEP LEFT HIP SASCHA AT THIS TIME. POC DISCUSSED WITH PRIMARY RN. INTEGUMENTARY: -BILATERAL UPPER ARM SKIN INTACT ECCHYMOSIS SKIN MOIST INTACT +1 EDEMA -SACRALCOCCYX, UN-STAGEABLE PRESSURE INJURY 88K16A5.1CM WOUND BED 80% BROWN/ BLACK ESCHARD TISSUE, 20 % YELLOW /BROWN DRY SLOUGH TISSUE AND SLIGHTLY PINK TISSUE TOWARD WOUND EDGE, WOUND EDGE ATTACHED MOIST, NO ODOR WITH JJ WOUND SKIN MOISTURE ASSOCIATED DERMATITIS ,RED MOIST TISSUE WHICH EXTENDED TO RIGHT AND LEFT LOWER BUTTOCKS AND JJ -ANAL AREA WITH FURTHER DAMAGE INDICATED -MOISTURE ASSOCIATED DERMATITIS PERINEUM, JJ-ANAL AND MEDIAL THIGHS, SKIN RED AND MOIST, EROSIONS HAS IMPROVED -LEFT HIP SURGICAL WOUND [address] AND SECURED NO S/S OF WOUND DEHISCENCE -LEFT HEEL BLANCHABLE REDNESS 3X3CM, SKIN INTACT. RECOMMENDATIONS: -CLEANSE SACRALCOCCYX WOUND WITH NS, PAT DRY, APPLY MOIST 4X4 BETADINE GAUZE TO WOUND BED AND APPLY CALMOSEPTINE CREAM TO JJ WOUND SKIN AND COVER WITH ABD PAD DRESSING SECURED WITH TAPE QD AND PRN IF SOILING. -CLEANSE WITH SOAP AND WATER, APPLY CALMOSEPTINE CR. TO MEDIAL THIGHS, JJ ANAL AND PERINEUM BID AND PRN IF SOILING -APPLY DRY ISLAND DRESSING TO LEFT HIP SURGICAL SITES QD AND PRN IF SOILING -TURN AND REPOSITION PATIENT Q 2H -INSPECT SKIN UNDER AND AROUND MEDICAL DEVICES. -ASSESS AND MONITOR SKIN CONDITION DURING POSITION CHANGE -OFFLOAD BILATERAL HEELS BY PLACING PILLOWS UNDER CALVES AT ALL TIMES, UNLESS OTHERWISE CONTRAINDICATED -APPLY HEEL PROTECTORS -PRESSURE REDISTRIBUTION SURFACE AND OFFLOADING SACRALCOCCYX -MANAGE FRICTION AND SHEAR BY USING LIFT SHEET TO REPOSITION PATIENT -HOB 30 DEGREE TOLERATE -PLEASE FOLLOW RD RECOMMENDATIONS PLEASE NOTIFIED WOUND CARE NURSE FOR ANY CHANGE OF SKIN CONDITION
--- NOTE | 2021-09-01 14:35 | NUR ---
WOUND ASSESSMENT AND DRESSING REINFORCEMENT WAS DONE TO PT NOW.
[2021-09-01 16:00] VITALS: BP 128/74
--- NOTE | 2021-09-01 17:00 | NUR ---
PT IS SLEEPING NOW, NO SIGN OF DISTRESS NOTED.
--- NOTE | 2021-09-01 19:25 | NUR ---
ENDORSED PT TO NIGHT RN FOR CONTINUITY OF CARE, PT IS LYING ON THE BED, WAS [facility]SFERR[facility], STABLE NOW.
[2021-09-01 20:00] VITALS: BP 114/68
[2021-09-01] MEDS: ATORVASTATIN 20 MG TAB PO SCH (21:10)
[2021-09-02] VITALS: BP 122/72
--- NOTE | 2021-09-02 | NUR ---
ROUNDS , ON TELE MONITOR - ST - NO S/SX OF DISTRESS , OS SAT WNL . WILL CONT. TO MONITOR . CALL LIGHT WITHIN REACH .
[2021-09-02] MEDS: MENTHOL/ZINC OXIDE 113 GM TUBE TP SCH ×2 (01:00→13:00)
[2021-09-02] MEDS: ALBUTEROL SULFATE/IPRATROPIU 3 ML SOL IH SCH ×4 (01:14→20:06)
--- NOTE | 2021-09-02 01:14 | NUR ---
PT LAYING IN BED IN SUPINE POSITION, HOB ELEVATED, BS REVEALED CLEAR/DIMINISHED THROUGHOUT, HHN TX WAS TOLERATED WELL AND IMPROVED AERATION AND SOB. NO RESPIRATORY DISTRESS NOTED AT THIS TIME SATING 92% ON RA. WILL CONTINUE TO MONITOR.
[2021-09-02 04:00] VITALS: BP 118/68
[2021-09-02] MEDS: MEROPENEM 1,000 MG in NACL 0.9% 50 ML IV SCH ×3 (04:07→21:43)
[2021-09-02] MEDS: BLOOD GLUCOSE MONITORING 1 DEV DEV FS SCH ×4 (05:56→21:43)
[2021-09-02 06:52] LABS: BASOPHILS # (AUTO) 0.1 K/uL (0.00-0.22); BASOPHILS % (AUTO) 0.8 % (0.0-2.0); EOSINOPHILS # (AUTO) 0.2 K/uL (0-0.4); EOSINOPHILS % (AUTO) 3.8 % (0.0-4.0); HEMATOCRIT 23.7 % (36-48); HEMOGLOBIN 7.6 g/dL (12.0-16.0); LYMPHOCYTES # (AUTO) 1.6 K/uL (2.5-16.5); LYMPHOCYTES % (AUTO) 24.8 % (20.5-51.1); MEAN CORPUSCULAR HEMOGLOBIN 30 pg (27-31); MEAN CORPUSCULAR HGB CONC 32 g/dL (33-37); MEAN CORPUSCULAR VOLUME 94.4 fL (80-94); MONOCYTES # (AUTO) 0.4 K/uL (0.8-1.0); MONOCYTES % (AUTO) 6.5 % (1.7-9.3); NEUTROPHILS # (AUTO) 4.2 K/uL (1.8-7.7); NEUTROPHILS % (AUTO) 64.1 % (42.2-75.2); PLATELET COUNT (AUTO) 207 K/uL (140-450); RED BLOOD CELL COUNT(AUTO) 2.51 MIL/uL (4.20-5.40); RED CELL DISTRIBUTION WIDTH 16.8 % (11.6-13.7); WHITE BLOOD COUNT (AUTO) 6.6 K/uL (4.8-10.8)
--- NOTE | 2021-09-02 07:15 | NUR ---
RECEIVED PT FROM NIGHT RN, PT IS ASLEEP AND LYING ON THE BED,VISIBLE CHEST RISE AND FALL, WITH SIDE RAILS UP AND CALL LIGHT WITHIN REACH, PT IS ON RA, CADE CATHETER IN PLACE, PT HAS A RIGHT FEMORAL CENTRAL LINE TRIPLE LUMEN, PT HAS A SACRAL OPEN WOUND, NO SIGN OF DISTRESS NOTED AND WILL CONTINUE TO MONITOR PT.
[2021-09-02 07:57] LABS: ANION GAP 12.1 (8-16); CARBON DIOXIDE 27.7 mmol/L (21-32); CHLORIDE 110 mmol/L (98-107); CREATININE 1.2 mg/dL (0.6-1.3); GLUCOSE 150 mg/dL (74-106); POTASSIUM 3.8 mmol/L (3.5-5.1); SODIUM SERUM 146 mmol/L (136-145); UREA NITROGEN, BLOOD 15 mg/dL (7-18)
[2021-09-02 08:00] VITALS: BP 136/67
[2021-09-02 08:08] LABS: MAGNESIUM 2.2 mg/dL (1.8-2.4); PHOSPHORUS 2.7 mg/dL (2.5-4.9)
--- NOTE | 2021-09-02 09:08 | NUR ---
PT WAS GIVEN THE SCHEDULED AM MEDICATIONS, PARAMETER CHECKED,CRUSHED, GIVEN WITH APPLE SAUCE AND TOLERATED, NO SIGN OF DISTRESS NOTED AND WILL CONTINUE TO MONITOR PT.
[2021-09-02] MEDS: PANTOPRAZOLE 40 MG INJ VIAL IVP SCH (09:09)
[2021-09-02] MEDS: MULTIVITAMIN/MINERALS 1 TAB PO SCH (09:09)
[2021-09-02] MEDS: CLOPIDOGREL 75 MG TAB PO SCH (09:09)
[2021-09-02] MEDS: INSULIN LISPRO SLIDING SCALE 100 UNITS/ML VIAL SUBQ PRN (11:55)
--- NOTE | 2021-09-02 11:55 | NUR ---
PT WAS GIVEN INSULIN 2 UNITRS ON THE RIGHT DELTOID FOR BLOOD GLUCOSE OF 192
[2021-09-02 12:00] VITALS: BP 155/62
--- NOTE | 2021-09-02 12:07 | NUR ---
PT WAS GIVEN IVPB MERREM NOW.
[2021-09-02] MEDS: GAUZE TP SCH (13:02)
--- NOTE | 2021-09-02 14:15 | NUR ---
WOUND CARE ASSESSMENT AND DRESSING CHANGE WAS DONE TO PT NOW, CALMOSEPTINE WAS APPLIED WELL.
[2021-09-02 16:00] VITALS: BP 137/83
--- NOTE | 2021-09-02 19:35 | NUR ---
RECEIVED PT FROM DAY SHIFT NURSE FOR CONTINUITY OF CARE. PT AWAKE AND ALERT. ON ROOM AIR. AFEBRILE. PT HAS CENTRAL LINE INSERTED ON R FEMORAL TRIPLE LUMEN TKO. PT HAS CADE DRAINING YELLOW CLOUDY URINE.ALL PRECAUTIONS IN PLACE. CALL LIGHT WITHIN REACH.WILL CONTINUE TO MONITOR.
[2021-09-02 20:00] VITALS: BP 131/67
--- NOTE | 2021-09-02 20:06 | NUR ---
PT LAYING IN BED IN SUPINE POSITION, HOB ELEVATED, BS REVEALED CLEAR/DIMINISHED THROUGHOUT, NO RESPIRATORY DISTRESS NOTED AT THIS TIME SATING 90% ON RA. HHN TX WAS GIVEN WITH NEBULIZER AND MASK, TOLERATED WELL AND IMPROVED AERATION AND SOB. WILL CONTINUE TO MONITOR.
--- NOTE | 2021-09-02 21:30 | NUR ---
SCHEDULED MEDICATIONS GIVEN. PT TOLERATED WELL. BLOOD SUGAR WAS 167. INSULIN COVERAGE GIVEN. CALL LIGHT WITHIN REACH. WILL CONTINUE TO MONITOR.
[2021-09-02] MEDS: ATORVASTATIN 20 MG TAB PO SCH (21:44)
--- NOTE | 2021-09-02 23:00 | NUR ---
PT REPOSITIONED. WARM BLANKETS PROVIDED, URINE SAMPLE OBTAINED AND SENT TO LAB. ALL PRECAUTIONS IN PLACE. WILL CONTINUE TO MONITOR.
[2021-09-03] VITALS: BP 154/57
[2021-09-03 00:59] LABS: APPEARANCE,URINE SL CLOUDY (CLEAR); BILIRUBIN,URINE NEGATIVE (NEGATIVE); BLOOD, URINE 3+ (NEGATIVE); COLOR,URINE YELLOW (YELLOW); LEUKOCYTE ESTERASE ,URINE 2+ (NEGATIVE); NITRITE, URINE NEGATIVE (NEGATIVE); UGLUCOSE NEGATIVE (NEGATIVE)
[2021-09-03] MEDS: MENTHOL/ZINC OXIDE 113 GM TUBE TP SCH (01:00)
[2021-09-03] MEDS: ALBUTEROL SULFATE/IPRATROPIU 3 ML SOL IH SCH ×4 (01:00→20:10)
--- NOTE | 2021-09-03 01:00 | NUR ---
PT ASLEEP. NO DISTRESS NOTED.VISIBLE CHEST RISE AND FALL NOTED. ALL PRECAUTIONS IN PLACE. WILL CONTINUE TO MONITOR.
--- NOTE | 2021-09-03 01:00 | NUR ---
PT LAYING IN BED ASLEEP, BS CLEAR/DIMINISHED THROUGHOUT, NO SIGNS OF RESPIRATORY DISTRESS NOTED AT THIS TIME. PT IS CURRENTLY SATING 96% DID NOT WANT HHN TX STATES SHE RATHER REST. WILL CONTINUE TO MONITOR.
[2021-09-03 01:15] LABS: RBC,URINE 50-80 /HPF (0-5); WBC,URINE TOO MANY TO COUNT /HPF (0-5)
[2021-09-03 01:16] LABS: YEAST,URINE Many /HPF (None Seen)
[2021-09-03 04:00] VITALS: BP 128/53
--- NOTE | 2021-09-03 05:15 | NUR ---
SCHEDULED ANTIBIOTICS GIVEN. PT'S SACRAL WOUND CLEANED AND DRESSED. PT TOLERATED WELL. ALL NEEDS MET. ALL SAFETY PRECAUTION IN PLACE. WILL CONTINUE TO MONITOR.
[2021-09-03] MEDS: MEROPENEM 1,000 MG in NACL 0.9% 50 ML IV SCH ×3 (05:30→22:43)
--- NOTE | 2021-09-03 06:44 | NUR ---
PT IS STABLE. NO ACUTE EVENTS THROUGHOUT THE NIGHT.NO S/SX OF DISTRESS AT THIS TIME. DENIES ANY PAIN. ALL NEEDS MET. ALL SAFETY PRECAUTIONS IN PLACE.WILL CONTINUE TO MONITOR.
--- NOTE | 2021-09-03 06:44 | NUR ---
PATIENT WAS INITIALLY SCREENED MODERATE I/A AND THEN PATIENT WAS NOTED TO HAVE A WOUND/PRESSURE ULCER PER CONSULT RECEIVED AFTER INITIAL SCREEN WAS DONE. RESCREEN ADDENDUM: PATIENT HAS BEEN RESCREENED AND RE-CATEGORIZED HIGH RISK D/T PATIENT WITH WOUND/PRESSURE ULCER. PATIENT WILL BE SEEN WITHIN 1-2 DAYS OF CHANGE IN MEDICAL STATUS. 09/03/21-09/04/21 RITA MONTES MS, RDN
[2021-09-03] MEDS: BLOOD GLUCOSE MONITORING 1 DEV DEV FS SCH ×4 (06:45→21:00)
[2021-09-03 07:24] LABS: BASOPHILS % (AUTO) 0.4 % (0.0-2.0); EOSINOPHILS # (AUTO) 0.3 K/uL (0-0.4); HEMATOCRIT 23.3 % (36-48); HEMOGLOBIN 7.6 g/dL (12.0-16.0); LYMPHOCYTES # (AUTO) 1.5 K/uL (2.5-16.5); LYMPHOCYTES % (AUTO) 15.3 % (20.5-51.1); MEAN CORPUSCULAR HEMOGLOBIN 31 pg (27-31); MEAN CORPUSCULAR HGB CONC 33 g/dL (33-37); MEAN CORPUSCULAR VOLUME 94.4 fL (80-94); MONOCYTES # (AUTO) 0.4 K/uL (0.8-1.0); MONOCYTES % (AUTO) 4.4 % (1.7-9.3); NEUTROPHILS # (AUTO) 7.4 K/uL (1.8-7.7); NEUTROPHILS % (AUTO) 76.9 % (42.2-75.2); PLATELET COUNT (AUTO) 214 K/uL (140-450); RED BLOOD CELL COUNT(AUTO) 2.46 MIL/uL (4.20-5.40); RED CELL DISTRIBUTION WIDTH 16.9 % (11.6-13.7); WHITE BLOOD COUNT (AUTO) 9.6 K/uL (4.8-10.8)
[2021-09-03 07:26] LABS: ANION GAP 11.1 (8-16); CARBON DIOXIDE 29.1 mmol/L (21-32); CHLORIDE 109 mmol/L (98-107); CREATININE 1.1 mg/dL (0.6-1.3); GLUCOSE 142 mg/dL (74-106); POTASSIUM 3.2 mmol/L (3.5-5.1); SODIUM SERUM 146 mmol/L (136-145); UREA NITROGEN, BLOOD 12 mg/dL (7-18)
--- NOTE | 2021-09-03 07:40 | NUR ---
ENDORSED TO AM SHIFT NURSE FOR CONTINUITY OF CARE. PT IS STABLE.
--- NOTE | 2021-09-03 07:40 | NUR ---
OPENING NOTES: PATIENT IS RESTING IN BED QUIETLY. AAOX2-3 TO PERSON, PLACE AND SITUATION WITH EPISODE CONFUSION AND FORGETFULNESS. EXPLAINED POC AND PATIENT VERBALIZED UNDERSTANDING HOWEVER, NEED EDUCATIONAL REINFORCEMENT. FC DRAINING TO GRAVITY. R FEMORAL TRIPLE LUMEN CENTRAL C/D/I, TKO AT THIS TIME. PATIENT IS ON PUREE DIET WITH FEEDING ASSIST. NO ADDITIONAL DISTRESS NOTED. BED IN LOW AND LOCK POSITION. BED ALARM ON. CALL LIGHT WITHIN REACH. WILL CONT TO MONITOR.
[2021-09-03 07:42] LABS: MAGNESIUM 1.9 mg/dL (1.8-2.4); PHOSPHORUS 2.3 mg/dL (2.5-4.9)
[2021-09-03 08:00] VITALS: BP 119/57
[2021-09-03] MEDS: CLOPIDOGREL 75 MG TAB PO SCH (09:00)
[2021-09-03] MEDS: PANTOPRAZOLE 40 MG INJ VIAL IVP SCH (09:33)
[2021-09-03] MEDS: MULTIVITAMIN/MINERALS 1 TAB PO SCH (09:33)
[2021-09-03] MEDS: POTASSIUM CHLORIDE 20% 40 MEQ/15 ML UDC GT PRN (09:34)
[2021-09-03 10:20] LABS: CREATININE,URINE RANDOM 21 mg/dL (30-125); POTASSIUM,URINE RANDOM 26 mmol/L (12-75); URINE SODIUM, RANDOM 133 mmol/l (40-220)
[2021-09-03] MEDS: ACETAMINOPHEN 325 MG TAB PO PRN (10:30)
[2021-09-03 12:00] VITALS: BP 139/78
[2021-09-03] MEDS: INSULIN LISPRO SLIDING SCALE 100 UNITS/ML VIAL SUBQ PRN (12:43)
[2021-09-03] MEDS: GAUZE TP SCH (13:00)
[2021-09-03 16:00] VITALS: BP 130/72
--- NOTE | 2021-09-03 19:00 | NUR ---
CLOSING NOTES: PATIENT IS RESTING IN BED QUIETLY TRYING TO EAT HER DINNER. PATIENT HAS POOR PO INTAKE. PATIENT WAS ASSISTED WITH FEEDING BY PRIMARY NURSE. HOWEVER, PATIENT DOES NOT HAVE ANY APPETITE TO EAT. PATIENT HAS MOSTLY BEEN SLEEPING THROUGHOUT THE DAY. NO ADDITIONAL DISTRESS NOTED. STABLE CONDITION AT THIS TIME. ALL NEEDS MEET. WOUND CARE AT 1730. CLEANSE WOUND TO BUTTOCKS WITH NS, PADDED DRY WITH STERILE GAUZE AND COVER WITH GAUZE SOAK WITH BETADINE AND OPTIFOAM. SECURE WITH TEGADERM. WILL CONT TO MONITOR.
[2021-09-03 20:00] VITALS: BP 122/63
--- NOTE | 2021-09-03 20:10 | NUR ---
PT LAYING IN BED IN SUPINE POSITION, HOB ELEVATED, BS REVEALED CLEAR/DIMINISHED THROUGHOUT, NO RESPIRATORY DISTRESS NOTED AT THIS TIME SATING 98% ON RA. HHN TX WAS GIVEN WITH NEBULIZER AND MASK, TOLERATED WELL AND IMPROVED AERATION AND SOB. WILL CONTINUE TO MONITOR.
[2021-09-03] MEDS: ATORVASTATIN 20 MG TAB PO SCH (21:00)
--- NOTE | 2021-09-03 21:30 | NUR ---
SCHEDULED ANTIBIOTICS GIVEN. PT REPOSITIONED FOR COMFORT. PT TOLERATED WELL. ALL NEEDS MET. ALL SAFETY PRECAUTION IN PLACE. WILL CONTINUE TO MONITOR.
[2021-09-03] MEDS: POTASSIUM CHL 20 MEQ / DEXT 5% 1,000 ML IV SCH (22:45)
--- NOTE | 2021-09-03 23:00 | NUR ---
PT ASLEEP. NO DISTRESS NOTED.VISIBLE CHEST RISE AND FALL NOTED. ALL PRECAUTIONS IN PLACE. WILL CONTINUE TO MONITOR.
[2021-09-04] VITALS: BP 118/67
--- NOTE | 2021-09-04 | NUR ---
PT VITAL SIGNS STABLE. NO ACUTE RESPIRATORY DISTRESS NOTED. ALL SAFETY PRECAUTIONS IN PLACE. WILL CONTINUE TO MONITOR.
[2021-09-04] MEDS: MENTHOL/ZINC OXIDE 113 GM TUBE TP SCH ×2 (01:00→13:10)
[2021-09-04] MEDS: ALBUTEROL SULFATE/IPRATROPIU 3 ML SOL IH SCH ×4 (01:00→19:00)
--- NOTE | 2021-09-04 01:05 | NUR ---
PT LAYING IN BED ASLEEP, BS CLEAR/DIMINISHED THROUGHOUT, NO SIGNS OF RESPIRATORY DISTRESS NOTED AT THIS TIME. PT IS CURRENTLY SATING 97% DID NOT GIVE HHN TX STATES SHE RATHER REST. WILL CONTINUE TO MONITOR.
--- NOTE | 2021-09-04 01:31 | NUR ---
ROUNDS MADE. PT RESTING IN BED. NO S/SX OF DISTRESS NOTED. PROVIDED WARM BLANKET. ALL NEEDS ATTENDED. SAFETY PRECAUTIONS IN PLACE. WILL CONTINUE TO MONITOR.
[2021-09-04 04:00] VITALS: BP 102/51
--- NOTE | 2021-09-04 04:30 | NUR ---
PT WAS CLEANED, CHANGED AND REPOSITIONED FOR COMFORT.CALL LIGHT WITHIN REACH. ALL PRECAUTIONS IN PLACE.WILL CONTINUE TO MONITOR.
--- NOTE | 2021-09-04 06:26 | NUR ---
PT ASLEEP. BREATHING EQUAL AND UNLABORED. NO S/SX OF DISTRESS NOTED.BP IS 113/40. WILL CONTINUE TO MONITOR.
[2021-09-04] MEDS: BLOOD GLUCOSE MONITORING 1 DEV DEV FS SCH ×4 (07:21→21:00)
--- NOTE | 2021-09-04 07:23 | NUR ---
OPENING NOTES: PATIENT IS RESTING IN BED QUIETLY. AAOX2-3 TO PERSON, PLACE AND SITUATION WITH EPISODE CONFUSION AND FORGETFULNESS. EXPLAINED POC AND PATIENT VERBALIZED UNDERSTANDING HOWEVER, NEED EDUCATIONAL REINFORCEMENT. FC DRAINING TO GRAVITY. R FEMORAL TRIPLE LUMEN CENTRAL C/D/I, IVF D5 K20 MEQ AT 80CC/HR. PATIENT IS ON PUREE DIET WITH FEEDING ASSIST. WILL ENCOURAGE TO EAT MORE. NO ADDITIONAL DISTRESS NOTED. BED IN LOW AND LOCK POSITION. BED ALARM ON. CALL LIGHT WITHIN REACH. WILL CONT TO MONITOR.
--- NOTE | 2021-09-04 07:23 | NUR ---
PT ENDORSED TO AM SHIFT NURSE FOR CONTINUITY OF CARE. PT IS STABLE.
[2021-09-04 08:00] VITALS: BP 145/67
[2021-09-04] MEDS: CLOPIDOGREL 75 MG TAB PO SCH (09:00)
--- NOTE | 2021-09-04 09:00 | NUR ---
POOR PO INTAKE/POOR APPETITE: PATIENT MANAGE TO EAT 30% OF BREAKFAST AND 60 ML OF LQUIDS WITH PRIMARY NURSE HELPING FED THE PATIENT. POOR PO INTAKE/POOR APPETITE AND ONLY WANTS TO SLEEP. WILL ENCOURAGE TO EAT MORE AT LUNCH.
[2021-09-04] MEDS ORDERED: PANT40EC PO (09:21)
[2021-09-04] MEDS: PANTOPRAZOLE 40 MG INJ VIAL IVP SCH (09:35)
[2021-09-04] MEDS: MULTIVITAMIN/MINERALS 1 TAB PO SCH (09:36)
[2021-09-04 11:08] LABS: ANION GAP 9.9 (8-16); CARBON DIOXIDE 28.4 mmol/L (21-32); CHLORIDE 106 mmol/L (98-107); CREATININE 0.9 mg/dL (0.6-1.3); GLUCOSE 189 mg/dL (74-106); POTASSIUM 3.3 mmol/L (3.5-5.1); SODIUM SERUM 141 mmol/L (136-145); UREA NITROGEN, BLOOD 9 mg/dL (7-18)
[2021-09-04 12:00] VITALS: BP 137/59
--- NOTE | 2021-09-04 13:00 | NUR ---
LUNCH-POOR PO INTAKE/POOR APPETITE: PATIENT MANAGE TO EAT 20% OF LUNCH AND 100 ML OF LIQUIDS WITH PRIMARY NURSE HELPING FED THE PATIENT. POOR PO INTAKE/POOR APPETITE. PATIENT GOT UPSET AND DOES NOT WANT TO EAT MORE. WILL ENCOURAGE TO EAT MORE AT DINNER .
[2021-09-04] MEDS: GAUZE TP SCH (13:10)
[2021-09-04] MEDS: POTASSIUM CHLORIDE 20% 40 MEQ/15 ML UDC GT PRN (13:19)
[2021-09-04] MEDS: INSULIN LISPRO SLIDING SCALE 100 UNITS/ML VIAL SUBQ PRN ×3 (13:59→23:13)
--- NOTE | 2021-09-04 14:05 | NUR ---
HELD PLAVIX AND HEPARIN: SPOKE WITH DR MANTILLA IF CONT TO GIVE PLAVIX AND HEPARIN SINCE 7.6/23.3. PER MD, HOLD IT AT THIS TIME. WILL CONT TO MONITOR LABS AND ANY S/SX OF BLEEDING.
[2021-09-04] MEDS: POTASSIUM CHL 20 MEQ / DEXT 5% 1,000 ML IV SCH ×2 (15:02→23:10)
[2021-09-04 16:00] VITALS: BP 134/60
--- NOTE | 2021-09-04 16:05 | NUR ---
09/04/21 RD FOLLOW UP COMPLETED PLEASE REFER TO NUTRITION ASSESSMENT UNDER CARE ACTIVITY FOR ESTIMATED NUTRITIONAL NEEDS. 1. CONTINUE PUREE DIET TOLERATED 2. CONTINUE MIGHTY SHAKES TID PER PROTOCOL 3. MONITOR BLOOD GLUCOSE LEVELS 4. RD TO FOLLOW-UP 3-5 DAYS, MODERATE RISK ANANTH OBRIEN RD
--- NOTE | 2021-09-04 18:59 | NUR ---
CLOSING NOTES: PATIENT IS RESTING IN BED QUIETLY TRYING TO EAT HER DINNER. PATIENT HAS POOR PO INTAKE. PATIENT WAS ASSISTED WITH FEEDING BY PRIMARY NURSE. HOWEVER, PATIENT DOES NOT HAVE ANY APPETITE TO EAT AND GETS UPSET WHEN ENCOURAGE TO EAT MORE. NO ADDITIONAL DISTRESS NOTED. STABLE CONDITION AT THIS TIME. ALL NEEDS MEET. WOUND CARE AT 1300. CLEANSE WOUND TO BUTTOCKS WITH NS, PADDED DRY WITH STERILE GAUZE AND COVER WITH GAUZE SOAK WITH BETADINE AND OPTIFOAM. SECURE WITH OPTIFOAM. CALL LIGHT WITHIN REACH. STABLE CONDITION. WILL CONT TO MONITOR.
[2021-09-04 20:00] VITALS: BP 130/107
--- NOTE | 2021-09-04 20:27 | NUR ---
2009 patient refused hhntx. bs are clear. pt is on room air. sats 98%. patient will call if she wants a hhntx
--- NOTE | 2021-09-04 22:57 | NUR ---
HEPARIN HELD D/T UNCHANGED HCT/HGB EARLIER.
[2021-09-04] MEDS: ATORVASTATIN 20 MG TAB PO SCH (23:09)
[2021-09-05] MEDS: ALBUTEROL SULFATE/IPRATROPIU 3 ML SOL IH SCH ×2 (01:00→07:22)
[2021-09-05] MEDS: MENTHOL/ZINC OXIDE 113 GM TUBE TP SCH ×2 (01:00→10:46)
[2021-09-05 04:00] VITALS: BP 127/71
--- NOTE | 2021-09-05 07:20 | NUR ---
OPENING NOTES: PATIENT IS RESTING IN BED QUIETLY. AAOX2-3 TO PERSON, PLACE AND SITUATION WITH EPISODE CONFUSION AND FORGETFULNESS. EXPLAINED POC AND PATIENT VERBALIZED UNDERSTANDING HOWEVER, NEED EDUCATIONAL REINFORCEMENT. FC DRAINING TO GRAVITY. R FEMORAL TRIPLE LUMEN CENTRAL C/D/I, IVF D5 K20 MEQ AT 80CC/HR. PATIENT IS ON PUREE DIET WITH FEEDING ASSIST. WILL ENCOURAGE TO EAT MORE. NO ADDITIONAL DISTRESS NOTED. BED IN LOW AND LOCK POSITION. BED ALARM ON. CALL LIGHT WITHIN REACH. POSSIBLE DC TO [facility] TODAY. WILL CONT TO MONITOR.
[2021-09-05 08:00] VITALS: BP 120/58
[2021-09-05] MEDS: CLOPIDOGREL 75 MG TAB PO SCH (09:00)
[2021-09-05] MEDS: MULTIVITAMIN/MINERALS 1 TAB PO SCH (10:00)
[2021-09-05] MEDS: PANTOPRAZOLE 40 MG INJ VIAL IVP SCH (10:00)
[2021-09-05] MEDS: GAUZE TP SCH (10:47)
[2021-09-05] MEDS: BLOOD GLUCOSE MONITORING 1 DEV DEV FS SCH ×3 (11:30→16:36)
[2021-09-05 12:00] VITALS: BP 91/45
--- NOTE | 2021-09-05 12:30 | NUR ---
POOR PO INTAKE/POOR APPETITE: PATIENT MANAGE TO EAT 10% OF BREAKFAST AND 60 ML OF LQUIDS WITH PRIMARY NURSE HELPING FED THE PATIENT. POOR PO INTAKE/POOR APPETITE. WILL ENCOURAGE TO EAT MORE AT LUNCH. Addendum: 09/05/21 at 1628 by Agency 05 TANNER RN DOCUMENTATION FOR 0900AM
--- NOTE | 2021-09-05 12:30 | NUR ---
POOR PO INTAKE/POOR APPETITE: PATIENT MANAGE TO EAT 10% OF BREAKFAST AND 50 ML OF LQUIDS WITH PRIMARY NURSE HELPING FED THE PATIENT. POOR PO INTAKE/POOR APPETITE. WILL ENCOURAGE TO EAT MORE AT DINNER TIME.
[2021-09-05] MEDS: INSULIN LISPRO SLIDING SCALE 100 UNITS/ML VIAL SUBQ PRN (12:38)
--- NOTE | 2021-09-05 15:00 | NUR ---
SBAR REPORT GIVEN TO [facility]: SPOKE WITH MALACHI SHETTY RN AT [facility] AND GAVE SBAR REPORT. [facility] ETA FOR [facility] IS AT 1900 TONIGHT.
[2021-09-05 16:00] VITALS: BP_SYST 111; BP_DIAS 48; BP_DIAS 68
--- NOTE | 2021-09-05 17:30 | NUR ---
FC REPLACED AND R FEMORAL DC: OLD F/C REMOVED, AND NOTED 300 ML OF CLEAR YELLOW URINE. RE-INSERTED A NEW F/C 16 FR DRAINING TO GRAVITY. PATIENT TOLERATED WELL. UA COLLECTED FROM THE NEW BAG AND WILL SEND TO LAB. R FEMORAL CENTRAL LINE REMOVED. APPLIED PRESSURE TO SITE. NO BLEEDING NOTED. CENTRAL CATH INTACT WHEN REMOVED. COVER SITE WITH GAUZE AND SECURE WITH CLOTHE TAPE. JJ CARE PERFORMED. PATIENT HAD 1 LARGE BROWN SOFT BM. DRESSING CHANGE TO COCCYX/SACRAL (DTI). CLEANSE WITH NS, APPLIED GAUZE WITH BETADINE AND COVER WITH OPTIFOAM AND SECURE WITH TEGADERM. PICTURE TAKEN WELL.
[2021-09-05 17:33] VITALS: BP_DIAS 48
--- NOTE | 2021-09-05 17:50 | NUR ---
DC TO [facility]: 1740: [facility] AT THE BEDSIDE AND GAVE SBAR REPORT. DC INSTRUCTIONS GIVEN TO THEM. PATIENT UNABLE TO SIGN WITH 2 RN TO VERIFIED DUE TO PATIENT HAS EPISODE OF CONFUSION AND FORGETFULNESS, AA02-3 PERSON, PLACE, AND TIME. 1750: PATIENT LEFT THE UNIT IN STABLE CONDITION VIA GURNEY ACCOMPANIED BY [facility]. LIZ, ATTEMPTED TO CALL [facility] (FAMILY) THIS AFTERNOON, NO ANSWERS BUT LEFT A MSG. NO CALL BACK EITHER.
--- NOTE | 2021-09-06 11:10 | NUR ---
PHYSICAL THERAPY CO-SIGN The Physical Therapy Progress Notes documented by [employer] Grader have been reviewed. Reviewed/Co-Signed by: Remedios Sauceda Documentation Done by:[facility] TRAN PTA Addendum: 09/06/21 at 1110 by Remedios Sauceda PT Amended: Links added.
== END 2021-09-05 17:48 | DRG 870 ==
LOC: MED 14:36 → MIC 18:54 → MTU 18:54 → MIC 08-24 22:55 → MTU 08-31 14:40
PROVIDERS: ADMIT Hospitalist; ATTEND Hospitalist
PROC: 5A1955Z Respiratory Ventilation, Greater than 96 Consecutive Hours (ICD-10-PCS; principal; 2021-08-23)
PROC: 5A09357 Assistance with Respiratory Ventilation, Less than 24 Consecutive Hours, Continuous Positive Airway Pressure (ICD-10-PCS; 2021-08-23)
PROC: 0BH17EZ Insertion of Endotracheal Airway into Trachea, Via Natural or Artificial Opening (ICD-10-PCS; 2021-08-23)
DX: A41.59 Other Gram-negative sepsis (principal); R65.21 Severe sepsis with septic shock; J96.01 Acute respiratory failure with hypoxia; J18.9 Pneumonia, unspecified organism; E43 Unspecified severe protein-calorie malnutrition; N17.0 Acute kidney failure with tubular necrosis; E87.3 Alkalosis; N39.0 Urinary tract infection, site not specified; E78.5 Hyperlipidemia, unspecified; E11.9 Type 2 diabetes mellitus without complications; I10 Essential (primary) hypertension; D63.8 Anemia in other chronic diseases classified elsewhere; I48.91 Unspecified atrial fibrillation; E83.39 Other disorders of phosphorus metabolism; E83.42 Hypomagnesemia; E87.6 Hypokalemia; R93.89 Abnormal findings on diagnostic imaging of other specified body structures; Z86.73 Personal history of transient ischemic attack (TIA), and cerebral infarction without residual deficits; Z68.33 Body mass index [BMI] 33.0-33.9, adult; I25.2 Old myocardial infarction
CPT/HCPCS: 31500; 36415; 36600; 70450; 71045; 71275; 80048; 80053; 80202; 81001; 82140; 82570; 82803; 82948; 83036; 83605; 83735; 83880; 84100; 84133; 84300; 84443; 84484; 85025; 85379; 85610; 85730; 87040; 87070; 87081; 87086; 87205; 92610; 93005; 94003; 94640; 96365; 96368; 97112; 97530; 99291; C9113; J1644; J1940; J2185; J2250; J2270; J2405; J2543; J3010; J3370; J3475; J3480; J3490; J7030; J7060; J7070; Q0092; Q9967; U0003